=== PATIENT | female | born 1965 | race American Indian/Alaskan Native ===

== ENCOUNTER 2018-12-18 12:58 | Emergency (ER) | payer MEDICAID ==
[2018-12-18] MEDS ORDERED: XYLOCAINE TOPICAL 4% TP ONE (13:28)
[2018-12-18] MEDS ORDERED: MAGNESIUM SULFATE 2GM/50ML 2 GM/50 ML BAG IV ONE (13:28)
[2018-12-18] MEDS ORDERED: REGLAN IV ONE (13:28)
[2018-12-18] MEDS ORDERED: BENADRYL IV ONE (13:28)
[2018-12-18] MEDS ORDERED: SOLU-Medrol IV ONE (13:28)
--- NOTE | 2018-12-18 13:30 | Emergency Department Report ---
ED General Adult HPI - General Chief complaint: Headache Stated complaint: HEADACHE Time Seen by Provider: 12/18/18 13:14 Source: patient, EMS (ems notes not available at time of chart dictation), RN notes reviewed, old records reviewed Mode of arrival: Stretcher Limitations: Other (patient is somewhat of a poor historian) - History of Present Illness Initial comments: This is a 53-year-old female. The patient is not known to this provider previously. History is obtained by reviewing the patient's old medical records, from her previous hospitalization, and also from the patient. The patient has a past medical history of seizure, confirmed on EEG, with focal epileptiform disorder, currently on Tegretol, Keppra, Neurontin. Also has a history of homelessness, chronic headache, history of left craniotomy and tumor resection. Patient reports that her craniotomy was performed 6-7 months ago, in [facility]. Patient was seen at [facility], on 08/24/2018, and referred to an outpatient primary care doctor, and had her outpatient prescription medications refilled. Her medications include Norvasc, 10 mg daily, aspirin, 81 mg daily, Fioricet, one tablet daily, Tegretol, 200 mg twice daily, carvedilol, 6.25 mg twice daily, gabapentin, 300 mg, every 8 hours, Keppra, 750 mg, twice daily, was inappropriate, 10 mg daily, Zoloft, 50 mg daily, Topamax, 25 mg daily. Patient presents to the ER with a complaint of headache. The headache is left- sided. The headache is not sudden or thunderclap in nature. The headache did not reach maximal intensity within an hour. The headache does not radiate anywhere. She reports chronic daily headaches. There is no loss of vision, there is no neck pain, there are no fevers, and there is no vomiting. She has not indicated with her or not she has tried [id number] or oral analgesics for this headache. She reports that she has follow-up with a neurology specialist beginning of December. She denies abdominal pain, urinary symptoms, focal extremity weakness, numbness. She makes no complaint of ataxia, blurry vision, or slurred speech. -: Gradual Location: head Radiation: non-radiation Quality: aching Consistency: constant, intermittent Improves with: none Worsens with: none Associated Symptoms: headaches, malaise, weakness. denies: confusion, chest pain, cough, diaphoresis, fever/chills, loss of appetite, nausea/vomiting, rash, seizure, shortness of breath, syncope - Related Data Allergies Allergy/AdvReac Type Severity Reaction Status Date / Time sumatriptan [From Imitrex] AdvReac Anaphylaxis Verified 12/18/18 13:36 ED Review of Systems ROS: Stated complaint: HEADACHE Other details as noted in HPI Constitutional: malaise. denies: fever Eyes: denies: eye discharge, vision change ENT: denies: epistaxis Respiratory: denies: cough Cardiovascular: denies: chest pain Gastrointestinal: denies: vomiting Genitourinary: denies: dysuria Musculoskeletal: denies: arthralgia Skin: denies: lesions Neurological: headache Psychiatric: anxiety ED Past Medical Hx - Past Medical History Previous Medical History?: Yes Hx Hypertension: Yes Hx Seizures: Yes Additional medical history: Encephalopathy R/T seizures. - Surgical History Past Surgical History?: Yes Additional Surgical History: Brain Tumor surgery - Social History Smoking Status: Never Smoker Substance Use Type: None ED Physical Exam - General Limitations: No Limitations General appearance: alert, in no apparent distress - Head Head exam: Present: atraumatic, normocephalic - Eye Eye exam: Present: normal appearance, PERRL, EOMI, other (visual acuity intact to finger counting, color perception, reading at a close distance). Absent: nystagmus - ENT ENT exam: Present: normal exam, normal orophraynx, mucous membranes moist, normal external ear exam, other (there is no temporal tenderness.) - Neck Neck exam: Present: normal inspection, full ROM. Absent: tenderness, meningismus - Respiratory Respiratory exam: Present: normal lung sounds bilaterally. Absent: respiratory distress - Cardiovascular Cardiovascular Exam: Present: regular rate, normal rhythm, normal heart sounds. Absent: bradycardia, tachycardia, irregular rhythm, systolic murmur, diastolic murmur, rubs, gallop - GI/Abdominal GI/Abdominal exam: Present: soft. Absent: distended, tenderness, guarding, rebound, rigid, pulsatile mass - Extremities Exam Extremities exam: Present: normal inspection, full ROM, other (2+ pulses noted in the bilateral upper, lower extremities. Compartments soft. No long bony tenderness. The pelvis is stable.). Absent: pedal edema, joint swelling, calf tenderness - Back Exam Back exam: Present: normal inspection, full ROM. Absent: tenderness, CVA tenderness (R), paraspinal tenderness, vertebral tenderness - Neurological Exam Neurological exam: Present: alert, oriented X3, CN II-XII intact, other (Extraocular movements intact. Tongue midline. No facial droop. Facial sensation intact to light touch in the V1, V2, V3 distribution bilaterally. 5 and 5 strength in 4 extremities.. Sensation is intact to light touch in 4 extremities.). Absent: motor sensory deficit - Psychiatric Psychiatric exam: Present: anxious - Skin Skin exam: Present: warm, dry, intact, normal color. Absent: rash ED Course Vital Signs 12/18/18 12/18/18 12/18/18 13:33 14:22 14:30 Temperature 98.6 F Pulse Rate 68 65 Respiratory 16 15 Rate Blood Pressure 155/83 155/83 O2 Sat by Pulse 99 98 98 Oximetry 12/18/18 14:46 Temperature Pulse Rate 67 Respiratory 17 Rate Blood Pressure 160/91 O2 Sat by Pulse 96 Oximetry - Reevaluation(s) Reevaluation #1: 12/18/18 14:21 Differential diagnosis, including not limited to: Migraine headache, tension headache, cluster headache, cranial mass lesion, intracranial hemorrhage Assessment and plan: 53-year-old female who had an extensive evaluation at [facility], where she was reportedly admitted for persistent seizures, a fascia, altered mental status, had extensive workup, including consultation with neurosurgery and neurology, EEG, and MRI. Patient has all of her prescriptions with her. sHe is afebrile, and has an unremarkable and nonfocal motor and sensory examination. She has a documented history of chronic headaches. We will treat her headache supportively and symptomatically, obtain noncontrast CT scan of the brain. The patient indicates that she has follow-up with the neurology specialist beginning of December. Reevaluation #2: 12/18/18 14:39 Vital signs unremarkable. Patient is resting comfortably. Noncontrast CT scan of the brain is negative for acute disease. Chronic fin dings noted. Reevaluation #3: 12/18/18 14:57 Patient feels improved. Patient able to walk with a steady gait. Patient will be discharged with instructions to continue current outpatient medications, and to follow-up with an outpatient primary care doctor, and/or neurology specialist. ED Medical Decision Making - Lab Data Result diagrams: 12/18/18 13:35 Vital Signs 12/18/18 14:22 Temperature 98.6 F Lab Results 12/18/18 Range/Units 13:35 Sodium 141 (137-145) mmol/L Potassium 4.3 (3.6-5.0) mmol/L Chloride 101.6 (98-107) mmol/L Carbon Dioxide 30 (22-30) mmol/L Anion Gap 14 mmol/L BUN 14 (7-17) mg/dL Creatinine 0.6 L (0.7-1.2) mg/dL Estimated GFR > 60 ml/min BUN/Creatinine Ratio 23 % Glucose 96 (65-100) mg/dL Calcium 8.8 (8.4-10.2) mg/dL Critical care attestation.: If time is entered above; I have spent that time in minutes in the direct care of this critically ill patient, excluding procedure time. ED Disposition Clinical Impression: Headache Disposition: DC-01 TO HOME OR SELFCARE Is pt being admited?: No Does the pt Need Aspirin: No Condition: Stable Additional Instructions: Continue current outpatient medications. Follow-up with your primary care doctor or neurology specialist within the next 2-3 weeks. Please return to the ER right away with new, worsening, different symptoms. Referrals: JEN SANTACRUZ MD [Referring] - 3-5 Days SREEDHAR DE LEÓN MD [Staff Physician] - 3-5 Days JESUS ANDRE MD [Staff Physician] - 3-5 Days
[2018-12-18 14:28] LABS: BUN/Creatinine Ratio 23; Blood Urea Nitrogen 14 mg/dL (7-17); Calcium 8.8 mg/dL (8.4-10.2); Hemolysis Index 6
--- NOTE | 2018-12-18 14:28 | Cat Scan Report ---
FINAL REPORT EXAM: CT HEAD/BRAIN WO CON HISTORY: headache, history of craniotomy TECHNIQUE: CT of the head was performed without intravenous contrast. PRIORS: None. FINDINGS: The ventricles are normal in shape and position. There is mild ex vacuo dilation of the left lateral ventricle likely related to the old infarcts. No evidence of acute hydrocephalus. Confluent areas of low-attenuation are seen in the periventricular and subcortical white matter. No intracranial hemorrh age, mass, mass effect, midline shift or evidence of acute ischemic infarct. The basilar cisterns are patent. There is encephalomalacia in the left frontal and temporal lobes likely representing old inf arct. Encephalomalacia is seen in the left occipital region. The paranasal sinuses are clear. The extracranial soft tissues demonstrate no abnormality. Probable o ld left medial orbital wall deformity is noted. The orbits are intact. The mastoid air cells are courtney r. IMPRESSION: 1. No definite acute intracranial abnormality. 2. 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 3. White matter changes are nonspecific in a patient this age although may be related to chronic micr ovascular ischemic disease versus a demyelinating or inflammatory process.
[2018-12-18 14:48] VITALS: BP 160/91
== END 2018-12-18 16:00 | disposition home or self-care (01) ==
LOC: ED 12:58
DX: R51 Headache (principal); I10 Essential (primary) hypertension; Z88.8 Allergy status to other drugs, medicaments and biological substances; Z59.0 Homelessness; Z79.82 Long term (current) use of aspirin
CPT/HCPCS: 36415; 70450; 80048; 82550; 96365; 96375; 99285; J1200; J2765; J2930; J3475

== ENCOUNTER 2020-09-06 20:51 | Emergency (ER) | payer MEDICAID ==
[2020-09-07] MEDS ORDERED: oxyCODONE /ACETAMINOPHEN 5-325MG TAB PO ONE (02:47)
--- NOTE | 2020-09-07 02:49 | Emergency Department Report ---
ED General Adult HPI - General Chief complaint: Abdominal Pain Stated complaint: ABDOMINAL PAIN PUI?: No Time Seen by Provider: 09/07/20 02:30 Source: patient Mode of arrival: Stretcher Limitations: No Limitations - History of Present Illness Initial comments: Patient is a 55-year-old female that presents emergency room with complaints of not able to fruit picker her pain medication from a pharmacy and abdominal pain. Patient states she had surgery here and was discharged from the hospital yesterday afternoon. Patient states that she went to the pharmacy and they said the did not have that dose of pain medication. Patient asked the pharmacist what to do and the pharmacist said to go back to the emergency room. The patient then returned to the emergency room for management of her pain. Patient states the pain is a 10 out of 10. Patient states she has staple in her abdomen from the surgery. Patient denies fever chills. Patient states she is having abdominal pain because she has not had any pain medication. Patient denies discharge from the abdominal wound. Patient denies chest pain. Patient denies shortness of breath. Patient denies any other physical complaints. Patient was given a prescription for Percocet 5 mg however the pharmacy does not have the dose. Patient has not any pain medication since she was discharged from the hospital. Patient denies recent travel. Patient denies recent international travel. Patient denies exposure to the novel coronavirus. Patient denies sick contacts. Patient denies fever and chills. Patient denies cough. Patient denies diarrhea. Patient denies coming in contact with anybody with symptoms of the novel coronavirus. -: Sudden Location: abdomen Radiation: non-radiation Severity scale (0 -10): 10 Quality: stabbing Consistency: constant Improves with: medication, rest Worsens with: movement Associated Symptoms: denies other symptoms. denies: confusion, chest pain, cough, diaphoresis, fever/chills, headaches, loss of appetite, malaise, nausea/vomiting, rash, seizure, shortness of breath, syncope, weakness Treatments Prior to Arrival: none - Related Data Previous Rx's Medication Instructions Recorded Last Taken Type Sulfacetamide Sod 10% (Nf) [Bleph 2 drops OP Q3H #1 bottle 03/30/19 Unknown Rx 10 (Nf)] Lisinopril [Zestril TAB] 30 mg PO QDAY #30 tab 10/16/20 Unknown Rx labetaloL [Labetalol 200mg TAB] 200 mg PO BID #60 tablet 09/06/20 Unknown Rx oxyCODONE /ACETAMINOPHEN [Percocet 1 tab PO Q4HR #10 tab 09/06/20 Unknown Rx 5/325] Allergies Allergy/AdvReac Type Severity Reaction Status Date / Time sumatriptan [From Imitrex] AdvReac Anaphylaxis Verified 12/18/18 13:36 ED Review of Systems ROS: Stated complaint: ABDOMINAL PAIN Other details as noted in HPI Constitutional: denies: chills, fever Eyes: denies: eye pain, eye discharge, vision change ENT: denies: ear pain, throat pain Respiratory: denies: cough, shortness of breath, wheezing Cardiovascular: denies: chest pain, palpitations Endocrine: no symptoms reported Gastrointestinal: abdominal pain. denies: nausea, diarrhea Genitourinary: denies: urgency, dysuria, discharge Musculoskeletal: denies: back pain, joint swelling, arthralgia Skin: denies: rash, lesions Neurological: denies: headache, weakness, paresthesias Psychiatric: denies: anxiety, depression Hematological/Lymphatic: denies: easy bleeding, easy bruising ED Past Medical Hx - Past Medical History Previous Medical History?: Yes Hx Hypertension: Yes Hx Heart Attack/AMI: No Hx Congestive Heart Failure: No Hx Diabetes: No Hx Liver Disease: No Hx Renal Disease: No Hx Sickle Cell Disease: No Hx Seizures: Yes (Seizure last on 08/30/2020. Last Keppa dose 08/30/2020) Hx Asthma: No Hx COPD: No Additional medical history: Encephalopathy R/T seizures. - Surgical History Past Surgical History?: Yes Hx Pacemaker: No Hx Internal Defibrillator: No Additional Surgical History: Brain Tumor surgery, Abdominal Surgery - Family History Family history: no significant - Social History Smoking Status: Never Smoker Substance Use Type: None - Medications Home Medications: Home Medications Medication Instructions Recorded Confirmed Last Taken Type Sulfacetamide Sod 10% (Nf) [Bleph 2 drops OP Q3H #1 bottle 03/30/19 Unknown Rx 10 (Nf)] Lisinopril [Zestril TAB] 30 mg PO QDAY #30 tab 09/06/20 Unknown Rx labetaloL [Labetalol 200mg TAB] 200 mg PO BID #60 tablet 09/06/20 Unknown Rx oxyCODONE /ACETAMINOPHEN [Percocet 1 tab PO Q4HR #10 tab 09/06/20 Unknown Rx 5/325] ED Physical Exam - General Limitations: No Limitations General appearance: alert, in no apparent distress - Head Head exam: Present: atraumatic, normocephalic - Eye Eye exam: Present: normal appearance - ENT ENT exam: Present: mucous membranes moist - Neck Neck exam: Present: normal inspection - Respiratory Respiratory exam: Present: normal lung sounds bilaterally. Absent: respiratory distress - Cardiovascular Cardiovascular Exam: Present: regular rate, normal rhythm. Absent: systolic murmur, diastolic murmur, rubs, gallop - GI/Abdominal GI/Abdominal exam: Present: soft, normal bowel sounds, other (Midline surgical site with kiersten noted. Surgical site appears to be healing well. No signs of infection.) - Extremities Exam Extremities exam: Present: normal inspection - Back Exam Back exam: Present: normal inspection - Neurological Exam Neurological exam: Present: alert, oriented X3 - Psychiatric Psychiatric exam: Present: normal affect, normal mood - Skin Skin exam: Present: warm, dry, intact, normal color. Absent: rash ED Course Vital Signs 09/06/20 09/06/20 09/07/20 21:56 22:05 03:05 Temperature 98.2 F 97.6 F Pulse Rate 104 H 98 H Respiratory 18 20 18 Rate Blood Pressure 137/76 Blood Pressure 142/89 [Left] O2 Sat by Pulse 97 97 Oximetry - Reevaluation(s) Reevaluation #1: Patient will be given a dose of pain medications. Patient will be given 10 mg of Percocet since her pain has been untreated for 70 hours. Patient agrees with plan of care. I discussed all results and clinical findings with patient. I discussed plan of care with patient. Patient agrees with plan of care. Patient is stable for discharge. Patient will be discharged home. Patient given discharge instructions. Patient voiced understanding of discharge instructions. 09/07/20 02:48 ED Medical Decision Making - Medical Decision Making Patient is a 55-year-old female that presents emergency room with complaints of not able to obtain her pain medication after being discharged from the hospital earlier yesterday. Patient states she was discharged with oxycodone 5 mg but the pharmacy was unable to fill it because it did not have that dose. Patient given given 10 mg Percocet in the ER since her pain has been uncontrolled and untreated for so many hours. Patient is not require any further emergency medical services. Patient stable for discharge. Patient instructed to follow- up previous discharge instructions. Patient given discharge instructions. Patient discharged home. - Differential Diagnosis Uncontrolled pain. Abdominal pain, medication refill, Critical care attestation.: If time is entered above; I have spent that time in minutes in the direct care of this critically ill patient, excluding procedure time. ED Disposition Clinical Impression: Medication refill, Uncontrolled pain Abdominal pain Qualifiers: Abdominal location: unspecified location Qualified Code(s): R10.9 - Unspecified abdominal pain Disposition: TO HOME OR SELFCARE Is pt being admited?: No Does the pt Need Aspirin: No Condition: Stable Instructions: Abdominal Pain (ED) Additional Instructions: Patient to follow previous discharge instructions from her inpatient discharge. Patient to follow-up with primary care in 2 to 3 days. Patient to follow-up with surgeon in 2 to 3 days. Patient to rest. Patient to increase water. Patient to avoid strenuous exercise or heavy lifting until cleared by surgeon and primary care. Patient to take Tylenol or ibuprofen as needed for pain. Patient to take meds as directed. Patient to return to the ER if condition worsens, changes or new symptoms arise. Referrals: PRIMARY CARE, [Primary Care Provider] - 2-3 Days Time of Disposition: 02:50
[2020-09-07 03:12] VITALS: BP 142/89
== END 2020-09-07 03:20 | disposition home or self-care (01) ==
LOC: ED 20:51
DX: R10.9 Unspecified abdominal pain (principal); I10 Essential (primary) hypertension; Z98.890 Other specified postprocedural states; Z79.899 Other long term (current) drug therapy; Z88.2 Allergy status to sulfonamides
CPT/HCPCS: 99283

== ENCOUNTER 2020-09-09 22:03 | Inpatient (IN) | payer MEDICAID ==
[2020-09-10 00:56] LABS: Basophils % (Auto) 0.4 % (0.0-1.8); Eosinophils % (Auto) 0.1 % (0.0-4.3); Hematocrit 34.5 % (30.3-42.9); Hemoglobin 11.4 gm/dl (10.1-14.3); Lymphocytes # (Auto) 0.9 K/mm3 (1.2-5.4); Lymphocytes % (Auto) 11.7 % (13.4-35.0); Mean Corpuscular HGB Conc 33 % (30-34); Mean Corpuscular Volume 89 fl (79-97); Monocytes # (Auto) 0.4 K/mm3 (0.0-0.8); Monocytes % (Auto) 5.5 % (0.0-7.3); Platelet Count 363 K/mm3 (140-440); Red Blood Count 3.89 M/mm3 (3.65-5.03); Red Cell Distribution Width 14.8 % (13.2-15.2)
[2020-09-10 01:11] LABS: Alanine Aminotransferase 65 units/L (7-56); Albumin 3.9 g/dL (3.9-5); Blood Urea Nitrogen 12 mg/dL (7-17); Calcium 9.2 mg/dL (8.4-10.2); Hemolysis Index 1
[2020-09-10 01:17] LABS: BUN/Creatinine Ratio 24
[2020-09-10] MEDS ORDERED: ONDANSETRON 4 MG/2 ML INJ IV ONE (02:44)
[2020-09-10] MEDS ORDERED: MORPHINE 4 MG/1 ML INJ IV ONE (02:44)
[2020-09-10] MEDS ORDERED: SODIUM CHLORIDE 0.9% 1000 ML 1,000 ML IV ONE (02:44)
--- NOTE | 2020-09-10 02:56 | Emergency Department Report ---
HPI - General Chief Complaint: Abdominal Pain Time Seen by Provider: 09/10/20 02:37 - HPI HPI: This is a 55-year-old female presents to the emergency department with a complaint of abdominal pain with radiation to the back that has been going on for the past 2 to 3 days and getting progressively worse. She admits to some nausea but denies any vomiting. The patient was just admitted to the hospital for, and had surgery for, a small bowel obstruction. At the time the patient was also found to have evidence of choledocholithiasis and was seen by gas troenterology but an ERCP was not performed and the patient was supposed to follow-up at the GI clinic in about 1 to 2 weeks. The patient says that she ran out of her pain medication. She has a past medical history of hypertension, seizures, previous brain tumor surgery. She denies any fever, dysuria, vaginal bleeding or discharge. ED Past Medical Hx - Past Medical History Previous Medical History?: Yes Hx Hypertension: Yes Hx Heart Attack/AMI: No Hx Congestive Heart Failure: No Hx Diabetes: No Hx Liver Disease: No Hx Renal Disease: No Hx Sickle Cell Disease: No Hx Seizures: Yes (Seizure last on 08/30/2020. Last Keppa dose 08/30/2020) Hx Asthma: No Hx COPD: No Additional medical history: Encephalopathy R/T seizures. - Surgical History Past Surgical History?: Yes Hx Pacemaker: No Hx Internal Defibrillator: No Additional Surgical History: Brain Tumor surgery, Abdominal Surgery - Social History Smoking Status: Never Smoker - Medications Home Medications: Home Medications Medication Instructions Recorded Confirmed Last Taken Type Sulfacetamide Sod 10% (Nf) [Bleph 2 drops OP Q3H #1 bottle 03/30/19 Unknown Rx 10 (Nf)] Lisinopril [Zestril TAB] 30 mg PO QDAY #30 tab 09/06/20 Unknown Rx labetaloL [Labetalol 200mg TAB] 200 mg PO BID #60 tablet 09/06/20 Unknown Rx oxyCODONE /ACETAMINOPHEN [Percocet 1 tab PO Q4HR #10 tab 09/06/20 Unknown Rx 5/325] ED Review of Systems ROS: Stated complaint: ABDOMINAL PAIN Other details as noted in HPI Comment: All other systems reviewed and negative Constitutional: denies: chills, fever Eyes: denies: eye pain, vision change ENT: denies: ear pain, throat pain Respiratory: denies: cough, shortness of breath Cardiovascular: denies: chest pain, palpitations Gastrointestinal: abdominal pain, nausea. denies: diarrhea Genitourinary: denies: dysuria, discharge Musculoskeletal: back pain. denies: arthralgia Skin: denies: rash, lesions Neurological: denies: headache, weakness Physical Exam - Physical Exam Vital Signs: Vital Signs 09/10/20 00:16 Temperature 98.1 F Pulse Rate 92 H Respiratory 20 Rate Blood Pressure 164/93 [Left] O2 Sat by Pulse 100 Oximetry Physical Exam: GENERAL: The patient is well-developed well-nourished. HENT: Normocephalic. Atraumatic. Patient has moist mucous membranes. EYES: Extraocular motions are intact. NECK: Supple. Trachea is midline. CHEST/LUNGS: Clear to auscultation. There is no respiratory distress noted. HEART/CARDIOVASCULAR: Regular. There is no tachycardia. There is no murmur. ABDOMEN: Abdomen is soft. Right upper quadrant abdominal tenderness. There is some mild guarding. Patient has normal bowel sounds. SKIN: Skin is warm and dry. Mid to lower abdominal kiersten in place. No eryth abigail, discharge or dehiscence. NEURO: The patient is awake, alert, and oriented. The patient is cooperative. The patient has no focal neurologic deficits. Normal speech. MUSCULOSKELETAL: There is no tenderness or deformity. There is no limitation range of motion. There is no evidence of acute injury. BACK: There is some reproducible right-sided mid to lower back pain to palpation. ED Course Vital Signs 09/10/20 00:16 Temperature 98.1 F Pulse Rate 92 H Respiratory 20 Rate Blood Pressure 164/93 [Left] O2 Sat by Pulse 100 Oximetry - Reevaluation(s) Reevaluation #1: 09/10/20 04:41 Lab Results 09/10/20 09/10/20 Range/Units 00:30 00:30 WBC 7.3 (4.5-11.0) K/mm3 RBC 3.89 (3.65-5.03) M/mm3 Hgb 11.4 (10.1-14.3) gm/dl Hct 34.5 (30.3-42.9) % MCV 89 (79-97) fl MCH 29 (28-32) pg MCHC 33 (30-34) % RDW 14.8 (13.2-15.2) % Plt Count 363 (140-440) K/mm3 Lymph % (Auto) 11.7 L (13.4-35.0) % Rock % (Auto) 5.5 (0.0-7.3) % Eos % (Auto) 0.1 (0.0-4.3) % Baso % (Auto) 0.4 (0.0-1.8) % Lymph # (Auto) 0.9 L (1.2-5.4) K/mm3 Rock # (Auto) 0.4 (0.0-0.8) K/mm3 Eos # (Auto) 0.0 (0.0-0.4) K/mm3 Baso # (Auto) 0.0 (0.0-0.1) K/mm3 Seg Neutrophils % 82.3 H (40.0-70.0) % Seg Neutrophils # 6.0 (1.8-7.7) K/mm3 Sodium 138 (137-145) mmol/L Potassium 2.9 L* (3.6-5.0) mmol/L Chloride 98.6 (98-107) mmol/L Carbon Dioxide 24 (22-30) mmol/L Anion Gap 18 mmol/L BUN 12 (7-17) mg/dL Creatinine 0.5 L (0.6-1.2) mg/dL Estimated GFR > 60 ml/min BUN/Creatinine Ratio 24 % Glucose 146 H (65-100) mg/dL Calcium 9.2 (8.4-10.2) mg/dL Total Bilirubin 3.20 H (0.1-1.2) mg/dL AST 87 H (5-40) units/L ALT 65 H (7-56) units/L Alkaline Phosphatase 502 H (35-129) units/L Total Protein 7.7 (6.3-8.2) g/dL Albumin 3.9 (3.9-5) g/dL Albumin/Globulin Ratio 1.0 % Lipase 184 H (13-60) units/L - Consultations Consultation #1: 09/10/20 04:22 I spoke to the general surgeon on-call, Dr. Rivas, who also happens to be the surgeon who did the patient's lysis of adhesions 9 days ago when she was here for a small bowel obstruction. We discussed the patient's labs and ultrasound results. He agrees with the plan for contacting gastroenterology for the choledocholithiasis. He says that he is available for consult if requested, but there is nothing to do from a surgical standpoint at this time. I spoke to the snack stewardess on-call, Dr. Steven, regarding the findings of choledocholithiasis with elevated LFTs, bilirubin and lipase. She has recommended the patient be admitted to the hospital, remain nothing by mouth, and they will see the patient as a consult this morning. ED Medical Decision Making - Lab Data Result diagrams: 09/10/20 00:30 09/10/20 00:30 - Radiology Data Radiology results: report reviewed ULTRASOUND ABDOMEN, LIMITED (RIGHT UPPER QUADRANT) INDICATION: RUQ pain, hx of choledocholithiasis, elevated Bili. COMPARISON: CT scan dated 08/30/2020 FINDINGS: Pancreas: Visualized portion shows no significant abnormality. Liver: Normal. Gallbladder: Cholelithiasis Bile ducts: There is choledocholithiasis. Common Bile Duct measures 8 mm. Free fluid: None. Additional Findings: None. IMPRESSION: 1. Cholelithiasis with choledocholithiasis. Common bile duct measures 8 mm. - Medical Decision Making This patient presents to the emergency department with a complaint of abdominal pain with radiation towards the back. She is about 9 days status post lysis of adhesions for an SBO. At that time she also had choledocholithiasis, but normal labs, so gastroenterology wanted outpatient follow-up. Today, the patient has elevated bilirubin, elevated LFTs and elevated lipase. No fever and no leukocytosis. The incision site looks good without any erythema, discharge, or signs of dehiscence. The patient was given a dose of IV analgesia and some IV fluid resuscitation. She had an ultrasound that came back showing cholelithiasis and choledoc holithiasis. Gastroenterology was contacted and consulted. The patient will be admitted to the hospital for further evaluation and treatment and was accepted for admission by the hospitalist, Dr. Dobbins. Critical Care Time: No Critical care attestation.: If time is entered above; I have spent that time in minutes in the direct care of this critically ill patient, excluding procedure time. ED Disposition Clinical Impression: Choledocholithiasis, Elevated bilirubin, Elevated LFTs, Elevated lipase Abdominal pain Qualifiers: Abdominal location: unspecified location Qualified Code(s): R10.9 - Unspecified abdominal pain Cholelithiasis Qualifiers: Cholelithiasis location: gallbladder and bile duct Cholecystitis presence: without cholecystitis Biliary obstruction: with biliary obstruction Qualified Code(s): K80.71 - Calculus of gallbladder and bile duct without cholecystitis with obstruction Disposition: 09 OP ADMIT IP TO THIS HOSP Is pt being admited?: Yes Condition: Serious Time of Disposition: 04:28
[2020-09-10] MEDS ORDERED: POTASSIUM CHLORIDE ER 20 MEQ TAB PO ONE (04:03)
--- NOTE | 2020-09-10 04:03 | Ultrasound Report ---
ULTRASOUND ABDOMEN, LIMITED (RIGHT UPPER QUADRANT) INDICATION: RUQ pain, hx of choledocholithiasis, elevated Bili. COMPARISON: CT scan dated 08/30/2020 FINDINGS: Pancreas: Visualized portion shows no significant abnormality. Liver: Normal. Gallbladder: Cholelithiasis Bile ducts: There is choledocholithiasis. Common Bile Duct measures 8 mm. Free fluid: None. Additional Findings: None. IMPRESSION: 1. Cholelithiasis with choledocholithiasis. Common bile duct measures 8 mm. Signer Name: Eduardo Boykin MD Signed: 09/10/2020 3:59 AM Workstation Name: [id number]
[2020-09-10] MEDS: POTASSIUM CHLORIDE 10 MEQ 10 MEQ/100 ML BAG IV SCH ×2 (04:41→11:45)
[2020-09-10] MEDS ORDERED: ONDANSETRON 4 MG/2 ML INJ IV PRN (06:18)
[2020-09-10] MEDS ORDERED: ACETAMINOPHEN 650 MG RECT SUPP PR PRN (06:20)
--- NOTE | 2020-09-10 06:27 | History and Physical Report ---
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 Patient came back with abdominal pain that became progressively worse going on for about 3 to 4 days wi th nausea and vomiting, there was no history of fever or chills, there was no history of diarrhea or constipation, patient also denies any history of shortness of breath or body aches. Past History Past Medical History: hypertension, seizures, other (SMALL BOWELL OBSTRUCTION) Past Surgical History: bowel surgery Social history: no significant social history Family history: no significant family history Medications and Allergies Allergies Allergy/AdvReac Type Severity Reaction Status Date / Time sumatriptan [From Imitrex] AdvReac Anaphylaxis Verified 12/18/18 13:36 Home Medications Medication Instructions Recorded Confirmed Last Taken Type Sulfacetamide Sod 10% (Nf) [Bleph 2 drops OP Q3H #1 bottle 03/30/19 Unknown Rx 10 (Nf)] Lisinopril [Zestril TAB] 30 mg PO QDAY #30 tab 09/06/20 Unknown Rx labetaloL [Labetalol 200mg TAB] 200 mg PO BID #60 tablet 09/06/20 Unknown Rx oxyCODONE /ACETAMINOPHEN [Percocet 1 tab PO Q4HR #10 tab 09/06/20 Unknown Rx 5/325] Active Meds: Active Medications Acetaminophen (Tylenol) 650 mg [place] Q4H PRN PRN Reason: Fever >101 Hydromorphone HCl (Dilaudid) 1 mg IV Q4H PRN PRN Reason: Pain , Severe (7-10) Potassium Chloride (Kcl 10meq/100ml) 10 meq in 100 mls @ 100 mls/hr IV Q1H DHARMESH Stop: 09/10/20 06:59 Last Admin: 09/10/20 04:41 Dose: 100 mls/hr Documented by: Sodium Chloride (Nacl 0.9% 1000 Ml) 1,000 mls @ 75 mls/hr IV DIRECT DHARMESH Ondansetron HCl (Zofran) 4 mg IV Q8H PRN PRN Reason: Nausea And Vomiting Review of Systems Constitutional: no weight loss, no weight gain, no fever, no chills, no sweats, no night sweats, no weakness, no malaise, no lethargy Eyes: bilateral: other (NO BILATERAL EYE SYMPTOMS) Ears, nose, mouth and throat: no ear pain, no nose pain, no nasal discharge, no dysphagia, no sore throat Breasts: deferred Cardiovascular: no chest pain, no orthopnea, no palpitations, no rapid/irregular heart beat, no edema, no syncope, no lightheadedness, no paroxysmal nocturnal dyspnea, no claudication, no phlebitis, no high blood pressure, no leg edema Respiratory: no cough, no cough with sputum, no excessive sputum, no hemoptysis, no shortness of breath, no dyspnea on exertion, no congestion, no wheezing, no pleurisy, no pain, no pain on inspiration, no respiratory infections, no home oxygen Gastrointestinal: abdominal pain, nausea, vomiting, no diarrhea, no constipation, no change in bowel habits, no hematemesis, no coffee ground emesis, no melena, no hematochezia, no loss of appetite, no early satiety, no excessive gas, no jaundice, no dyspepsia/bloating Rectal: no pain, no itching Musculoskeletal: no neck stiffness, no neck pain, no shooting arm pain, no low back pain, no shooting leg pain, no leg numbness/tingling, no redness of joints, no myalgias Integumentary: no rash, no pruritis, no redness, no sores, no wounds, no jaundice, no boils, no darkening of skin Neurological: no paralysis, no weakness, no seizures, no syncope, no tremors, no vertigo, no headaches, no convulsions Psychiatric: no anxiety Endocrine: no polyphagia, no excessive thirst, no polydipsia, no polyuria, no nocturia, no excessive sweating, no flushing, no palpatations Hematologic/Lymphatic: no easy bruising, no easy bleeding, no lymphadenopathy Allergic/Immunologic: no urticaria Exam - Constitutional Vitals: Temp Pulse Resp BP Pulse Ox 98 F 97 H 14 123/67 98 09/10/20 02:50 09/10/20 05:15 09/10/20 05:15 09/10/20 04:45 09/10/20 05:15 General appearance: Present: mild distress - EENT Eyes: Present: PERRL, EOM intact. Absent: scleral icterus ENT: hearing intact, clear oral mucosa - Neck Neck: Present: supple, normal ROM - Respiratory Respiratory effort: normal - Cardiovascular Rhythm: regular Heart Sounds: Present: S1 & S2. Absent: gallop, systolic murmur, diastolic murmur - Extremities Extremities: no ischemia, No edema Peripheral Pulses: within normal limits - Abdominal General gastrointestinal: Present: soft, tender, distended, normal bowel sounds, other (SURGICAL GILBERTO IN PLACE IN THE ANTERIOR ABDOMINAL WALL). Absent: non- tender, non-distended, rigid, hepatomegaly, splenomegaly Female genitourinary: Present: deferred - Rectal Rectal Exam: deferred - Integumentary Integumentary: Present: clear, warm, dry. Absent: erythema, jaundice, rash - Musculoskeletal Musculoskeletal: strength equal bilaterally - Psychiatric Psychiatric: appropriate mood/affect - Neurologic Neurologic: CNII-XII intact HEART Score - HEART Score Age: 45-65 Risk factors: 1-2 risk factors Troponin: < normal limit - Critical Actions Critical Actions: 0-3 pts:0.9-1.7%risk of adverse cardiac event.Candidate for discharge Results - Labs CBC & Chem 7: 09/10/20 00:30 09/10/20 00:30 Labs: Laboratory Last Values WBC 7.3 K/mm3 (4.5-11.0) 09/10/20 00:30 RBC 3.89 M/mm3 (3.65-5.03) 09/10/20 00:30 Hgb 11.4 gm/dl (10.1-14.3) 09/10/20 00:30 Hct 34.5 % (30.3-42.9) 09/10/20 00:30 MCV 89 fl (79-97) 09/10/20 00:30 MCH 29 pg (28-32) 09/10/20 00:30 MCHC 33 % (30-34) 09/10/20 00:30 RDW 14.8 % (13.2-15.2) 09/10/20 00:30 Plt Count 363 K/mm3 (140-440) 09/10/20 00:30 Lymph % (Auto) 11.7 % (13.4-35.0) L 09/10/20 00:30 Tripp % (Auto) 5.5 % (0.0-7.3) 09/10/20 00:30 Eos % (Auto) 0.1 % (0.0-4.3) 09/10/20 00:30 Baso % (Auto) 0.4 % (0.0-1.8) 09/10/20 00:30 Lymph # (Auto) 0.9 K/mm3 (1.2-5.4) L 09/10/20 00:30 Tripp # (Auto) 0.4 K/mm3 (0.0-0.8) 09/10/20 00:30 Eos # (Auto) 0.0 K/mm3 (0.0-0.4) 09/10/20 00:30 Baso # (Auto) 0.0 K/mm3 (0.0-0.1) 09/10/20 00:30 Seg Neutrophils % 82.3 % (40.0-70.0) H 09/10/20 00:30 Seg Neutrophils # 6.0 K/mm3 (1.8-7.7) 09/10/20 00:30 Sodium 138 mmol/L (137-145) 09/10/20 00:30 Potassium 2.9 mmol/L (3.6-5.0) L* 09/10/20 00:30 Chloride 98.6 mmol/L (98-107) 09/10/20 00:30 Carbon Dioxide 24 mmol/L (22-30) 09/10/20 00:30 Anion Gap 18 mmol/L 09/10/20 00:30 BUN 12 mg/dL (7-17) 09/10/20 00:30 Creatinine 0.5 mg/dL (0.6-1.2) L 09/10/20 00:30 Estimated GFR > 60 ml/min 09/10/20 00:30 BUN/Creatinine Ratio 24 % 09/10/20 00:30 Glucose 146 mg/dL (65-100) H 09/10/20 00:30 Calcium 9.2 mg/dL (8.4-10.2) 09/10/20 00:30 Total Bilirubin 3.20 mg/dL (0.1-1.2) H 09/10/20 00:30 AST 87 units/L (5-40) H 09/10/20 00:30 ALT 65 units/L (7-56) H 09/10/20 00:30 Alkaline Phosphatase 502 units/L (35-129) H 09/10/20 00:30 Total Protein 7.7 g/dL (6.3-8.2) 09/10/20 00:30 Albumin 3.9 g/dL (3.9-5) 09/10/20 00:30 Albumin/Globulin Ratio 1.0 % 09/10/20 00:30 Lipase 184 units/L (13-60) H 09/10/20 00:30 Momin/IV: IV Catheter Type [Left Hand] INT / Saline Lock Assessment and Plan - Patient Problems (1) Abdominal pain Current Visit: Yes Status: Acute Qualifiers: Abdominal location: unspecified location Qualified Code(s): R10.9 - Unspecified abdominal pain Plan to address problem: 1 I.V DILUDID FOR PAIN 2. I.V ZOFRAN FOR NAUSEA AND VOMITING 3. SURGICAL CONSULT (2) Choledocholithiasis Current Visit: Yes Status: Acute Plan to address problem: 1. G.I CONSULT 2. NPO (3) Hypokalemia Current Visit: No Status: Acute Plan to address problem: POTASSIUM REPLACEMENT
[2020-09-10] MEDS: SODIUM CHLORIDE 0.9% 1000 ML 1,000 ML IV SCH ×2 (06:51→16:52)
--- NOTE | 2020-09-10 08:28 | Gastroenterology Consultation ---
History of Present Illness - Reason for Consult Consult date: 09/10/20 Choledocholithiasis Requesting physician: BRITTANY ROSA - History of Present Illness Pleasant 55-year-old female postop day #9 from ex lap for SBO with lysis of adhesions presents with abdominal pain and elevated liver enzymes and known choledocholithiasis Patient actually has known choledocholithiasis from last visit a little over a week ago, however at that time she was asymptomatic and LFTs were normal therefore due to her acute postop status she was scheduled for outpatient GI follow-up for eventual elective ERCP However, the patient reports that starting yesterday she developed "20 out of 10" abdominal pain in the right abdomen that radiated to her back associated with nausea and vomiting cramping severe constant better with nothing worse with nothing. She therefore came to the emergency room where her liver enzymes were found to be newly elevated She reports this morning that her symptoms are moderately improved she is actually asking for food and reports that the back pain is still present though improved the abdominal pain she reports feels back to the way it felt for her p ostoperative status Obtained/updated/reviewed patient's current medications Past History Past Medical History: hypertension, seizures, other (SMALL BOWELL OBSTRUCTION) Past Surgical History: bowel surgery Social history: no significant social history Family history: no significant family history Medications and Allergies Allergies Allergy/AdvReac Type Severity Reaction Status Date / Time sumatriptan [From Imitrex] AdvReac Anaphylaxis Verified 12/18/18 13:36 Home Medications Medication Instructions Recorded Confirmed Last Taken Type Sulfacetamide Sod 10% (Nf) [Bleph 2 drops OP Q3H #1 bottle 03/30/19 Unknown Rx 10 (Nf)] Lisinopril [Zestril TAB] 30 mg PO QDAY #30 tab 09/06/20 Unknown Rx labetaloL [Labetalol 200mg TAB] 200 mg PO BID #60 tablet 09/06/20 Unknown Rx oxyCODONE /ACETAMINOPHEN [Percocet 1 tab PO Q4HR #10 tab 09/06/20 Unknown Rx 5/325] Active Meds: Active Medications Acetaminophen (Tylenol) 650 mg [place] Q4H PRN PRN Reason: Fever >101 Hydromorphone HCl (Dilaudid) 1 mg IV Q4H PRN PRN Reason: Pain , Severe (7-10) Sodium Chloride (Nacl 0.9% 1000 Ml) 1,000 mls @ 75 mls/hr IV DIRECT DHARMESH Last Admin: 09/10/20 06:51 Dose: 75 mls/hr Documented by: Ondansetron HCl (Zofran) 4 mg IV Q8H PRN PRN Reason: Nausea And Vomiting Review of Systems - Review of Systems All systems: negative (10 Systems reviewed and negative except as mentioned above in the history of present illness) Exam - Constitutional Vital Signs: Temp Pulse Resp BP Pulse Ox 98.4 F 86 18 164/96 99 09/10/20 07:35 09/10/20 07:35 09/10/20 07:35 09/10/20 07:35 09/10/20 07:35 General appearance: no acute distress, other (Thin) - EENT Eyes: EOM intact ENT: hearing intact - Neck Neck: supple - Respiratory Respiratory effort: normal - Cardiovascular Rhythm: regular - Gastrointestinal General gastrointestinal: Present: other (Normal bowel sounds, mildly firm, kiersten in place vertical line down the mid abdomen. She reports significant diffuse tenderness to palpation throughout the entire abdomen even to slight touch) - Integumentary Integumentary: Present: dry - Neurologic Neurological: alert and oriented x3 - Psychiatric Psychiatric: appropriate mood/affect - Labs CBC & Chem 7: 09/10/20 00:30 09/10/20 00:30 Lab Results: Laboratory Results - last 24 hr 09/10/20 09/10/20 00:30 00:30 WBC 7.3 RBC 3.89 Hgb 11.4 Hct 34.5 MCV 89 MCH 29 MCHC 33 RDW 14.8 Plt Count 363 Lymph % (Auto) 11.7 L Moffat % (Auto) 5.5 Eos % (Auto) 0.1 Baso % (Auto) 0.4 Lymph # (Auto) 0.9 L Moffat # (Auto) 0.4 Eos # (Auto) 0.0 Baso # (Auto) 0.0 Seg Neutrophils % 82.3 H Seg Neutrophils # 6.0 Sodium 138 Potassium 2.9 L* Chloride 98.6 Carbon Dioxide 24 Anion Gap 18 BUN 12 Creatinine 0.5 L Estimated GFR > 60 BUN/Creatinine Ratio 24 Glucose 146 H Calcium 9.2 Total Bilirubin 3.20 H AST 87 H ALT 65 H Alkaline Phosphatase 502 H Total Protein 7.7 Albumin 3.9 Albumin/Globulin Ratio 1.0 Lipase 184 H Assessment and Plan Patient symptoms are improving, spoke with advanced endoscopy and given patient is clinically in proving will wait on ERCP for at least another week to allow further healing to decrease the risk of significant perioperative complications from an ERCP. recommend monitor for 24 hours both clinically and following liver enzymes. If she continues to improve we will schedule her for outpatient ERCP in the next 1 to 2 weeks. If however her symptoms worsen again and her liver enzymes worsen, will perform inpatient ERCP I started her on a clear liquid diet for now given this plan - Patient Problems (1) Abdominal pain Current Visit: Yes Status: Acute Qualifiers: Abdominal location: unspecified location Qualified Code(s): R10.9 - Unspecified abdominal pain (2) Choledocholithiasis Current Visit: Yes Status: Acute (3) Cholelithiasis Current Visit: Yes Status: Acute Qualifiers: Cholelithiasis location: gallbladder and bile duct Cholecystitis presence: without cholecystitis Biliary obstruction: with biliary obstruction Qualified Code(s): K80.71 - Calculus of gallbladder and bile duct without cholecystitis with obstruction (4) Elevated LFTs Current Visit: Yes Status: Acute
[2020-09-10] MEDS: HYDROmorphone 1 MG/1 ML INJ IV PRN ×3 (12:15→21:20)
--- NOTE | 2020-09-10 13:12 | Consultation ---
History of Present Illness Consult date: 09/10/20 Reason for consult: abdominal pain - History of present illness History of present illness: 55 year old female previously admitted with abd pain, CT abd pelvis demonstrated SBO, incidentally found choledocholithiasis with normal LFTs at the time. Pt had expl lap with adhesiolysis, (NO BOWEL RESECTION), did well post op. Had GI ev aluation and plan was to have elective ERCP as outpatient, patient was discharged on oral antibiotics I believe. She developed more abd pain and presented to ER with increased LFTs, GI on board. Past History Past Medical History: hypertension, seizures, other (SMALL BOWELL OBSTRUCTION) Past Surgical History: bowel surgery Social history: no significant social history Family history: no significant family history Medications and Allergies Allergies Allergy/AdvReac Type Severity Reaction Status Date / Time sumatriptan [From Imitrex] AdvReac Anaphylaxis Verified 12/18/18 13:36 Home Medications Medication Instructions Recorded Confirmed Last Taken Type Sulfacetamide Sod 10% (Nf) [Bleph 2 drops OP Q3H #1 bottle 03/30/19 Unknown Rx 10 (Nf)] Lisinopril [Zestril TAB] 30 mg PO QDAY #30 tab 09/06/20 Unknown Rx labetaloL [Labetalol 200mg TAB] 200 mg PO BID #60 tablet 09/06/20 Unknown Rx oxyCODONE /ACETAMINOPHEN [Percocet 1 tab PO Q4HR #10 tab 09/06/20 Unknown Rx 5/325] Active Meds: Active Medications Acetaminophen (Tylenol) 650 mg ND Q4H PRN PRN Reason: Fever >101 Hydromorphone HCl (Dilaudid) 1 mg IV Q4H PRN PRN Reason: Pain , Severe (7-10) Last Admin: 09/10/20 12:15 Dose: 1 mg Documented by: Sodium Chloride (Nacl 0.9% 1000 Ml) 1,000 mls @ 75 mls/hr IV DIRECT DHARMESH Last Admin: 09/10/20 06:51 Dose: 75 mls/hr Documented by: Ondansetron HCl (Zofran) 4 mg IV Q8H PRN PRN Reason: Nausea And Vomiting Review of Systems - Constitutional other (abd pain) Exam Vital Signs Temp Pulse Resp BP Pulse Ox 98.1 F 92 H 20 164/93 100 09/10/20 00:16 09/10/20 00:16 09/10/20 00:16 09/10/20 00:16 09/10/20 00:16 Results - Labs 09/10/20 00:30 09/10/20 09:21 Abnormal lab results 09/10/20 09/10/20 Range/Units 00:30 00:30 Lymph % (Auto) 11.7 L (13.4-35.0) % Lymph # (Auto) 0.9 L (1.2-5.4) K/mm3 Seg Neutrophils % 82.3 H (40.0-70.0) % Potassium 2.9 L* (3.6-5.0) mmol/L Creatinine 0.5 L (0.6-1.2) mg/dL Glucose 146 H (65-100) mg/dL Total Bilirubin 3.20 H (0.1-1.2) mg/dL AST 87 H (5-40) units/L ALT 65 H (7-56) units/L Alkaline Phosphatase 502 H (35-129) units/L Lipase 184 H (13-60) units/L Diabetes panel 09/10/20 09/10/20 Range/Units 00:30 09:21 Sodium 138 (137-145) mmol/L Potassium 2.9 L* 4.6 D (3.6-5.0) mmol/L Chloride 98.6 (98-107) mmol/L Carbon Dioxide 24 (22-30) mmol/L BUN 12 (7-17) mg/dL Creatinine 0.5 L (0.6-1.2) mg/dL Glucose 146 H (65-100) mg/dL Calcium 9.2 (8.4-10.2) mg/dL AST 87 H (5-40) units/L ALT 65 H (7-56) units/L Alkaline Phosphatase 502 H (35-129) units/L Total Protein 7.7 (6.3-8.2) g/dL Albumin 3.9 (3.9-5) g/dL Calcium panel 09/10/20 Range/Units 00:30 Calcium 9.2 (8.4-10.2) mg/dL Albumin 3.9 (3.9-5) g/dL Pituitary panel 09/10/20 09/10/20 Range/Units 00:30 09:21 Sodium 138 (137-145) mmol/L Potassium 2.9 L* 4.6 D (3.6-5.0) mmol/L Chloride 98.6 (98-107) mmol/L Carbon Dioxide 24 (22-30) mmol/L BUN 12 (7-17) mg/dL Creatinine 0.5 L (0.6-1.2) mg/dL Glucose 146 H (65-100) mg/dL Calcium 9.2 (8.4-10.2) mg/dL Adrenal panel 09/10/20 09/10/20 Range/Units 00:30 09:21 Sodium 138 (137-145) mmol/L Potassium 2.9 L* 4.6 D (3.6-5.0) mmol/L Chloride 98.6 (98-107) mmol/L Carbon Dioxide 24 (22-30) mmol/L BUN 12 (7-17) mg/dL Creatinine 0.5 L (0.6-1.2) mg/dL Glucose 146 H (65-100) mg/dL Calcium 9.2 (8.4-10.2) mg/dL Total Bilirubin 3.20 H (0.1-1.2) mg/dL AST 87 H (5-40) units/L ALT 65 H (7-56) units/L Alkaline Phosphatase 502 H (35-129) units/L Total Protein 7.7 (6.3-8.2) g/dL Albumin 3.9 (3.9-5) g/dL Assessment and Plan S/p expl lap with adhesiolysis, NO small bowel resection, incidentally found choledocholithiais, previously normal LFTs, now abnormal. GI on board, I am ok with ERCP if indicated from a General Surgical standpoint, pt did not have any bowel resected and there is no anastomosis to worry about. Plan per GI.
--- NOTE | 2020-09-10 14:32 | Event Note ---
Date: 09/10/20 Patient was seen and evaluated this morning. Patient was admitted earlier this morning. Patient was seen by GI and general surgery. Pain is controlled.
[2020-09-11] MEDS: HYDROmorphone 1 MG/1 ML INJ IV PRN ×6 (01:20→21:29)
[2020-09-11] MEDS: SODIUM CHLORIDE 0.9% 1000 ML 1,000 ML IV SCH (05:41)
[2020-09-11 06:11] LABS: Albumin 3.2 g/dL (3.9-5); Bilirubin,Direct 1.1 mg/dL (0-0.2)
[2020-09-11 07:07] LABS: Bilirubin,Urine NEG (Negative); Blood,Urine SM (Negative); Color,Urine Yellow (Yellow); Mucus,Urine FEW /HPF; Protein,Urine <15 mg/dL mg/dL (Negative); Urobilinogen,Urine < 2.0 mg/dL (<2.0); WBC,Urine < 1.0 /HPF (0.0-6.0)
--- NOTE | 2020-09-11 08:23 | Progress Note ---
Assessment and Plan Assessment and plan: (1) Abdominal pain Current Visit: Yes Status: Acute Qualifiers: Abdominal location: unspecified location Qualified Code(s): R10.9 - Unspecified abdominal pain Plan to address problem: -Pain is controlled with pain medication. Patient ran out of her pain medication. Patient scheduled to see her primary care physician for pain medicine at discharge. -Patient was seen by general surgery and he is okay to do ERCP if needed (2) Choledocholithiasis Current Visit: Yes Status: Acute Plan to address problem: -GI saw the patient and will repeat LFTs and will decide the need for ERCP -Bilirubin trended down from 3-1.8, alk phos decreased from 520- 420 -Surgery cleared for ERCP (3) Hypokalemia Current Visit: No Status: Acute Plan to address problem: -Repleted Disposition; per GI and surgery recommendations. History Interval history: Patient was seen and evaluated this morning Patient had abdominal pain this morning and required Dilaudid Patient has epigastric burning and was given Pepcid Hospitalist Physical - Physical exam Narrative exam: Not in cardiopulmonary distress. The patient appeared well nourished and normally developed. Vital signs as documented. Head exam is unremarkable. No scleral icterus . Neck is without jugular venous distension, thyromegaly, or carotid bruits. Lungs are clear to auscultation. Cardiac exam reveals regular rate and Rhythm. Abdominal exam clean surgical wound on the mid abdomen Extremities are nonedematous and both femoral and pedal pulses are normal. BULK FOLDER: Alert and oriented 3. No focal weakness. - Constitutional Vitals: Temp Pulse Resp BP Pulse Ox 98.7 F 81 18 167/102 99 09/11/20 07:12 09/11/20 07:12 09/11/20 07:12 09/11/20 07:12 09/11/20 07:12 General appearance: Present: mild distress HEART Score - HEART Score Age: 45-65 Risk factors: 1-2 risk factors Troponin: < normal limit - Critical Actions Critical Actions: 0-3 pts:0.9-1.7%risk of adverse cardiac event.Candidate for discharge Results - Labs CBC & Chem 7: 09/10/20 00:30 09/10/20 09:21 Labs: Laboratory Last Values WBC 7.3 K/mm3 (4.5-11.0) 09/10/20 00:30 RBC 3.89 M/mm3 (3.65-5.03) 09/10/20 00:30 Hgb 11.4 gm/dl (10.1-14.3) 09/10/20 00:30 Hct 34.5 % (30.3-42.9) 09/10/20 00:30 MCV 89 fl (79-97) 09/10/20 00:30 MCH 29 pg (28-32) 09/10/20 00:30 MCHC 33 % (30-34) 09/10/20 00:30 RDW 14.8 % (13.2-15.2) 09/10/20 00:30 Plt Count 363 K/mm3 (140-440) 09/10/20 00:30 Lymph % (Auto) 11.7 % (13.4-35.0) L 09/10/20 00:30 [place] % (Auto) 5.5 % (0.0-7.3) 09/10/20 00:30 Eos % (Auto) 0.1 % (0.0-4.3) 09/10/20 00:30 Baso % (Auto) 0.4 % (0.0-1.8) 09/10/20 00:30 Lymph # (Auto) 0.9 K/mm3 (1.2-5.4) L 09/10/20 00:30 [place] # (Auto) 0.4 K/mm3 (0.0-0.8) 09/10/20 00:30 Eos # (Auto) 0.0 K/mm3 (0.0-0.4) 09/10/20 00:30 Baso # (Auto) 0.0 K/mm3 (0.0-0.1) 09/10/20 00:30 Seg Neutrophils % 82.3 % (40.0-70.0) H 09/10/20 00:30 Seg Neutrophils # 6.0 K/mm3 (1.8-7.7) 09/10/20 00:30 Sodium 138 mmol/L (137-145) 09/10/20 00:30 Potassium 4.6 mmol/L (3.6-5.0) D 09/10/20 09:21 Chloride 98.6 mmol/L (98-107) 09/10/20 00:30 Carbon Dioxide 24 mmol/L (22-30) 09/10/20 00:30 Anion Gap 18 mmol/L 09/10/20 00:30 BUN 12 mg/dL (7-17) 09/10/20 00:30 Creatinine 0.5 mg/dL (0.6-1.2) L 09/10/20 00:30 Estimated GFR > 60 ml/min 09/10/20 00:30 BUN/Creatinine Ratio 24 % 09/10/20 00:30 Glucose 146 mg/dL (65-100) H 09/10/20 00:30 Calcium 9.2 mg/dL (8.4-10.2) 09/10/20 00:30 Total Bilirubin 1.80 mg/dL (0.1-1.2) H 09/11/20 04:43 Direct Bilirubin 1.1 mg/dL (0-0.2) H 09/11/20 04:43 Indirect Bilirubin 0.7 mg/dL 09/11/20 04:43 AST 43 units/L (5-40) H 09/11/20 04:43 ALT 47 units/L (7-56) 09/11/20 04:43 Alkaline Phosphatase 402 units/L (35-129) H 09/11/20 04:43 Total Protein 6.3 g/dL (6.3-8.2) 09/11/20 04:43 Albumin 3.2 g/dL (3.9-5) L 09/11/20 04:43 Albumin/Globulin Ratio 1.0 % 09/11/20 04:43 Lipase 184 units/L (13-60) H 09/10/20 00:30 Urine Color Yellow (Yellow) 09/11/20 Unknown Urine Turbidity Clear (Clear) 09/11/20 Unknown Urine pH 8.0 (5.0-7.0) H 09/11/20 Unknown Ur Specific [place] 1.008 (1.003-1.030) 09/11/20 Unknown Urine Protein <15 mg/dl mg/dL (Negative) 09/11/20 Unknown Urine Glucose (UA) Neg mg/dL (Negative) 09/11/20 Unknown Urine Ketones Neg mg/dL (Negative) 09/11/20 Unknown Urine Blood Sm (Negative) 09/11/20 Unknown Urine Nitrite Neg (Negative) 09/11/20 Unknown Urine Bilirubin Neg (Negative) 09/11/20 Unknown Urine Urobilinogen < 2.0 mg/dL (<2.0) 09/11/20 Unknown Ur Leukocyte Esterase Neg (Negative) 09/11/20 Unknown Urine WBC (Auto) < 1.0 /HPF (0.0-6.0) 09/11/20 Unknown Urine RBC (Auto) 13.0 /HPF (0.0-6.0) 09/11/20 Unknown U Epithel Cells (Auto) < 1.0 /HPF (0-13.0) 09/11/20 Unknown Urine Mucus Few /HPF 09/11/20 Unknown Momin/IV: Voiding Method Toilet IV Catheter Type [Left Forearm INT / Saline Lock ] IV Catheter Type [Left Hand] INT / Saline Lock Active Medications - Current Medications Current Medications: Generic Name Dose Route Start Last Admin Trade Name Freq PRN Reason Stop Dose Admin Acetaminophen 650 mg 09/10/20 06:20 Tylenol [place] Q4H PRN Fever >101 Hydromorphone HCl 1 mg 09/10/20 06:18 09/11/20 05:36 Dilaudid IV 1 mg Q4H PRN Administration Pain , Severe (7-10) Sodium Chloride 1,000 mls @ 75 mls/hr 09/10/20 06:30 09/11/20 05:41 Nacl 0.9% 1000 Ml IV 75 mls/hr DIRECT DHARMESH Administration Ondansetron HCl 4 mg 09/10/20 06:18 Zofran IV Q8H PRN Nausea And Vomiting Nutrition/Malnutrition Assess - Dietary Evaluation Nutrition/Malnutrition Findings: Nutrition Notes Start: 09/10/20 15:51 Freq: Status: Active Protocol: Document 09/10/20 15:52 AL (Rec: 09/10/20 16:17 AL [email or web address]) Co-Sign 09/10/20 15:52 MK Nutrition Notes 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 33% wt change. Weight Status Underweight Subjective/Other Information RD consulted for low BMI. Pt currently on clear liquid diet and is ready for advancement. Pt. has no appetite issues, but is concerned about decreased weight. Pt chart reviewed from 3 days ago. Pt eats 100% of clear liquid diet and wants to have Ensure Clear Apple. Percent of energy/protein needs met: 36%/32% Burn Absent Trauma Absent GI Symptoms None Minimum of two criteria No physical signs of malnutrition #2 Nutrition Diagnosis Inadequate oral intake Etiology Clear liquid diet As Evidenced by Signs and Symptoms pt meeting 30% of energy and protein needs #1 Nutrition Diagnosis Underweight Etiology Adbominal surgery As Evidenced by Signs and Symptoms BMI 17.0 Is patient on ventilator? No Is Patient Ambulatory and/or Out of Bed Yes REE-([place]-St. Jeor-ambulatory/OOB) [ 1229.254 NUTR.[id number]] Kcal/Kg value to use for calculation 40 Approximate Energy Requirements Using 1633 kcal/Kg Calculation Used for Recommendations Kcal/kg Additional Notes 50-60 g Pro/day(1.25-1.5 g/kg) Fluids: 1 ml/kcal Nutrition Intervention Change Diet Order: Continue Nutrition Support: Ensure Clear Apple TID Kcal 720 Protein (gm) 24 Goal #1 Tolerate current diet and ONS supplement Goal #2 Advance to Cardiac Diet when medically appropriate. Anticipated Discharge Needs: Cardiac Diet Follow-Up By: 09/13/20 Additional Comments FU for ONS tolerance, diet advancement, and NFPE
[2020-09-11] MEDS: FAMOTIDINE 20 MG TAB PO SCH ×2 (11:20→21:29)
--- NOTE | 2020-09-11 13:01 | Event Note ---
Date: 09/11/20 Waiting on GI to determine if ERCP to be done in Hospital or in a delayed manner, I really have nothing else to offer at this point.I would try to limit iv narcotics as much as possible in this patient, she should be able to take PO pain meds.
[2020-09-11] MEDS ORDERED: NON-FORMULARY EACH (Lisinopril [Zestril Tab] 30 MG) PO SCH (13:30)
--- NOTE | 2020-09-11 13:38 | Discharge Summary ---
Providers - Providers Date of Admission: 09/10/20 04:28 Date of discharge: 09/13/20 Attending physician: BLAKE NAVAS MD 09/10/20 04:12 Consult to Physician [CONS] Routine Comment: Dr. uLtz spoke with Dr. Steven @ [phone] Consulting Provider: MARISA STEVEN Physician Instructions: Reason For Exam: choledocholithiasis 09/10/20 06:15 Consult to Physician [CONS] Routine Comment: Consulting Provider: LAURIE CARDOSO Physician Instructions: Reason For Exam: 3 DAYS POST OP CASE WITH ABDOMINAL PAIN , Primary care physician: TRUCK STRIKER Hospitalization Reason for admission: abdominal pain, choledocholithiasis Condition: Serious Procedures: ERCP Hospital course: History of present illness, patient is a 55-year-old female who recently had abdominal surgery for small bowel obstruction here in this hospital about 3 to 4 days ago, also patient was found to have choledocholithiasis and was discharged to follow-up with [facility] in 1 to 2 weeks. Patient came back with abdominal pain that became progressively worse going on for about 3 to 4 days with nausea and vomiting, there was no history of fever or chills, there was no history of diarrhea or constipation, patient also denies any history of shortness of breath or body aches. (1) Abdominal pain Current Visit: Yes Status: Acute Qualifiers: Abdominal location: unspecified location Qualified Code(s): R10.9 - Unspecified abdominal pain Plan to address problem: -Pain is controlled with pain medication. Patient ran out of her pain medication. Patient scheduled to see her primary care physician for pain medicine at discharge. -Patient was seen by general surgery and he is okay to do ERCP if needed (2) Choledocholithiasis Current Visit: Yes Status: Acute Plan to address problem: -GI saw the patient and will repeat LFTs and will decide the need for ERCP -Bilirubin trended down from 3-1.8, alk phos decreased from 520- 420 -Surgery cleared for ERCP -ERCP was done on 09/12/2020 and removal of some stone and stent was placed (3) Hypokalemia Current Visit: No Status: Acute Plan to address problem: -Repleted Patient's abdominal pain is getting better. Patient was seen by general surgery and recommend to see her in 2 weeks for cholecystectomy. GI will follow her in the office. Patient was hemodynamically stable at the time of discharge. Disposition: DC-01 TO HOME OR SELFCARE Time spent for discharge: 32 minutes - Discharge Diagnoses (1) Abdominal pain Status: Acute Qualifiers: Abdominal location: unspecified location Qualified Code(s): R10.9 - Unspecified abdominal pain (2) Choledocholithiasis Status: Acute (3) Cholelithiasis Status: Acute Qualifiers: Cholelithiasis location: gallbladder and bile duct Cholecystitis presence: without cholecystitis Biliary obstruction: with biliary obstruction Qual ified Code(s): K80.71 - Calculus of gallbladder and bile duct without cholecystitis with obstruction (4) Elevated LFTs Status: Acute (5) Elevated bilirubin Status: Acute (6) Hypokalemia Status: Acute Core Measure Documentation - Palliative Care Palliative Care/ Comfort Measures: Not Applicable - Core Measures Any of the following diagnoses?: none Exam - Physical Exam Narrative exam: Not in cardiopulmonary distress. The patient appeared well nourished and normally developed. Vital signs as documented. Head exam is unremarkable. No scleral icterus . Neck is without jugular venous distension, thyromegaly, or carotid bruits. Lungs are clear to auscultation. Cardiac exam reveals regular rate and Rhythm. Abdominal exam clean surgical wound on the mid abdomen Extremities are nonedematous and both femoral and pedal pulses are normal. LEI SELLER: Alert and oriented 3. No focal weakness. - Constitutional Vitals: Temp Pulse Resp BP Pulse Ox 99.5 F 89 16 171/96 97 09/11/20 12:05 09/11/20 12:05 09/11/20 12:05 09/11/20 13:11 09/11/20 12:05 Plan Activity: no restrictions Weight Bearing Status: Full Weight Bearing Diet: advance as tolerated, other (Follow GI recommendations) Follow up with: ROSS VIVEROS MD [Primary Care Provider] - 7 Days LAURIE CARDOSO MD [Staff Physician] - 14 Days DIEUDONNE HERNANDEZ MD [Staff Physician] - 7 Days Prescriptions: oxyCODONE /ACETAMINOPHEN [Percocet 5/325 mg] 1 tab PO Q4HR #14 tab Pantoprazole [Protonix TAB] 40 mg PO QDAC #30 tablet
--- NOTE | 2020-09-11 14:32 | Event Note ---
Date: 09/11/20 Pt is 10 days post op today from adhesiolysis, no bowel resection, she can tolerated ERCP if indicated.
[2020-09-11] MEDS: LISINOPRIL 20 MG TAB PO SCH (17:39)
--- NOTE | 2020-09-11 18:33 | Gastroenterology Progress Note ---
Assessment and Plan Patient symptoms are worsening, spoke with advanced endoscopy and given patient is clinically worsening will pursue inpatient ERCP tomorrow. N.p.o. past midnight Patient is not currently on any blood thinners - Patient Problems (1) Abdominal pain Current Visit: Yes Status: Acute Qualifiers: Abdominal location: unspecified location Qualified Code(s): R10.9 - Unspecified abdominal pain (2) Choledocholithiasis Current Visit: Yes Status: Acute (3) Cholelithiasis Current Visit: Yes Status: Acute Qualifiers: Cholelithiasis location: gallbladder and bile duct Cholecystitis presence: without cholecystitis Biliary obstruction: with biliary obstruction Qualified Code(s): K80.71 - Calculus of gallbladder and bile duct without cholecystitis with obstruction (4) Elevated LFTs Current Visit: Yes Status: Acute Subjective Date of service: 09/11/20 Principal diagnosis: Choledocholithiasis Interval history: Patient's liver enzymes are improving However she reports her abdominal pain is much worse today. She reports severe abdominal pain right upper quadrant and right mid abdomen 10 out of 10 severe sharp radiating to the back constant worse with palpation slightly better with pain medication no associated symptoms duration days Objective - Constitutional Vitals: Temp Pulse Resp BP Pulse Ox 98.7 F 81 17 175/109 99 09/11/20 17:38 09/11/20 17:39 09/11/20 17:38 09/11/20 17:39 09/11/20 17:38 General appearance: no acute distress - EENT Eyes: EOM intact - Respiratory Respiratory effort: normal - Cardiovascular Rhythm: regular - Gastrointestinal General gastrointestinal: Present: other (Healing vertical incision with kiersten in place. Positive bowel sounds. Mild tenderness to palpation of left hemiabdomen. Severe tenderness palpation right upper quadrant and significant tenderness to palpation remainder of right hemiabdomen) - Labs CBC & Chem 7: 09/10/20 00:30 09/10/20 09:21 Labs: Laboratory Results - last 24 hr 09/11/20 09/11/20 04:43 Unknown Total Bilirubin 1.80 H Direct Bilirubin 1.1 H Indirect Bilirubin 0.7 AST 43 H ALT 47 Alkaline Phosphatase 402 H Total Protein 6.3 Albumin 3.2 L Albumin/Globulin Ratio 1.0 Urine Color Yellow Urine Turbidity Clear Urine pH 8.0 H Ur Specific [place] 1.008 Urine Protein <15 mg/dl Urine Glucose (UA) Neg Urine Ketones Neg Urine Blood Sm Urine Nitrite Neg Urine Bilirubin Neg Urine Urobilinogen < 2.0 Ur Leukocyte Esterase Neg Urine WBC (Auto) < 1.0 Urine RBC (Auto) 13.0 U Epithel Cells (Auto) < 1.0 Urine Mucus Few
[2020-09-12] MEDS: HYDROmorphone 1 MG/1 ML INJ IV PRN ×4 (04:42→20:25)
--- NOTE | 2020-09-12 07:21 | Event Note ---
Date: 09/12/20 Apparently, plan is for ERCP today, once this is done, I will hold off performing cholecystecomy as long as possible/ reasonable to allow more time for intra-abdominal inflammation to resolve, which will make it more probable I can perform the cholecystectomy laparoscopically. The risk of passing another stone into her common duct is only about 19% in 6 weeks, therefore this will allow me more time and optimize chance of successful lap cholecystectomy/ versus open cholecystectomy , we shall see. This patient has issues with pain management and really requires excessive pain medication use, hopefully this can be discouraged as much as possible. Therefore, the present plan is to discharge patient following ERCP once GI is comfortable after the procedure/ ERCP.
[2020-09-12] MEDS: FAMOTIDINE 20 MG TAB PO SCH ×2 (08:27→10:11)
[2020-09-12] MEDS: LISINOPRIL 20 MG TAB PO SCH ×2 (08:27→10:11)
[2020-09-12] MEDS ORDERED: SODIUM CHLORIDE 0.9% 1000 ML 1,000 ML IV SCH (11:15)
[2020-09-12] MEDS ORDERED: SODIUM CHLORIDE 0.9% 1000 ML 1,000 ML ONE (12:03)
[2020-09-12] MEDS ORDERED: SODIUM CHLORIDE 0.9% 100 ML ONE (12:11)
[2020-09-12] MEDS ORDERED: WATER FOR IRRIG STERILE 1,000 ML BOTTLE ONE (12:12)
--- NOTE | 2020-09-12 12:22 | Anesthesia Day of Surgery ---
Anesthesia Day of Surgery - Day of Surgery Patient Examined: Yes Patient H&P Reviewed: Yes Patient is NPO: Yes
--- NOTE | 2020-09-12 12:25 | Anesthesia Consultation ---
Anesthesia Consult and Med Hx Date of service: 09/12/20 - Airway Anesthetic Teeth Evaluation: Dentures, Edentulous ROM Head & Neck: Adequate Mental/Hyoid Distance: Adequate Mallampati Class: Class II Intubation Access Assessment: Good - Pre-Operative Health Status ASA Pre-Surgery Classification: ASA2 Proposed Anesthetic Plan: MAC (MAC; GA if needed) - Pulmonary Hx Smoking: Yes (4 Cigs/Days) Hx Asthma: No Hx Respiratory Symptoms: No SOB: No COPD: No Hx Pneumonia: Yes Hx Sleep Apnea: Yes - Cardiovascular System Hx Hypertension: Yes Hx Coronary Artery Disease: No Hx Heart Attack/AMI: No Hx Angina: No Hx Percutaneous Transluminal Coronary Angioplasty (PTCA): No Hx Cardia Arrhythmia: No Hx Pacemaker: No Hx Internal Defibrillator: No Hx Valvular Heart Disease: No Hx Heart Murmur: No Hx Peripheral Vascular Disease: No - Central Nervous System Hx Neuromuscular Disorder: No Hx Seizures: Yes CVA: No Hx Back Pain: No Hx Psychiatric Problems: No - Gastrointestinal Hx Ulcer: No Hx Gastroesophageal Reflux Disease: No - Endocrine Hx Renal Disease: No Hx End Stage Renal Disease: No Hx Cirrhosis: No Hx Liver Disease: No Hx Insulin Dependent Diabetes: No Hx Non-Insulin Dependent Diabetes: No Hx Thyroid Disease: No Hx Hypothyroidism: No Hx Hyperthyroidism: No - Hematic Hx Anemia: No Hx Sickle Cell Disease: No - Other Systems Hx Alcohol Use: No Hx Substance Use: No Hx Cancer: No Hx Obesity: No - Additional Comments Anesthesia Medical History Comments: Had X-Lap here [id number]
[2020-09-12] MEDS ORDERED: LIDOCAINE MPF (2%) 20 MG/1 ML VIAL 5 ML ONE (12:32)
[2020-09-12] MEDS ORDERED: fentaNYL 100 MCG/2 ML INJ ONE (12:33)
[2020-09-12] MEDS ORDERED: MIDAZOLAM 2 MG/2 ML INJ ONE (12:33)
[2020-09-12] MEDS ORDERED: propofoL 200 MG/20 ML VIAL IV ONE ×2 (12:34→13:03)
[2020-09-12] MEDS ORDERED: METOPROLOL TARTRATE 5 MG/5 ML INJ IV ONE (13:17)
--- NOTE | 2020-09-12 13:19 | Post Operative Note ---
Pre-op diagnosis: CBD stones Post-op diagnosis: same Findings: 1. Normal ampulla 2. PD not cannulated 3. CBD cannulated with fusiontome/.035 guidewire - Dilated to 15mm - Multiple filling defects - Large sphincterotomy - 12mm balloon through CBD x 3 with removal of large stones but at least one residual stones remain in CBD and CHD (large, >1cm) - 10Fr x 5cm Biliary stent placed Procedure: ERCP with biliary sphincterotomy, balloon sweep of CBD, and bililary stent placement Anesthesia: MAC Surgeon: JESUS ADAMS Estimated blood loss: minimal Pathology: none Specimen disposition: other (N/A) Condition: stable Disposition: floor (Recs: 1. Advance diet and monitor LFTs. 2. Large stone(s) remain in dilated duct; suspect patient will need lithotripsy (as outpatient). 3. If stable, OK to d/c home tomorrow and will arrange lithotripsy as outpatient at [facility]. 4. Avoid NSAIDs, and protonix QD given size of sphincterotomy)
--- NOTE | 2020-09-12 14:17 | Operative Report ---
PROCEDURE PERFORMED: Endoscopic retrograde cholangiopancreatography with biliary sphincterotomy, balloon sweeping of the common bile duct, and biliary stent placement. PREOPERATIVE DIAGNOSIS: Choledocholithiasis. POSTOPERATIVE DIAGNOSIS: Choledocholithiasis. ENDOSCOPIST: Declan Thompson MD INSTRUMENT: Olympus video endoscope. MEDICATIONS: MAC anesthesia by [facility]. COMPLICATIONS: No apparent complications. ESTIMATED BLOOD LOSS: Minimal. SPECIMENS: None. IMPLANTS: A 10-Afghan x 5 cm dual-flanged biliary stent placed in the common bile duct, MRI compatible. ASSISTANTS: None. CONDITION AT COMPLETION: Stable. TECHNIQUE: The patient was informed of the risks and benefits of the procedure. She signed the informed consent to proceed. She was placed in the prone position. The above sedative medications were given. Her vital signs remained stable throughout the procedure. The instrument was advanced from the mouth to the ampulla under direct visualization. At that point, the bowel was insufflated and the endoscope was slowly withdrawn. The ampulla was normal in shape and size. The pancreatic duct was not cannulated or injected during the procedure. The common bile duct was cannulated using a 0.035 guidewire and a fusion sphincterotome. At that point, a cholangiogram was obtained, which showed dilation to 1.5 cm, and numerous filling defects in the common hepatic duct and common bile duct. A large sphincterotomy was performed. A 12 mm biliary balloon was swept through the common hepatic and common bile duct 4 times. We removed several large brown gallstones, and a large amount of sludge. However, at least 1, large, greater than 1 cm gallstone remained in the common bile duct that we were unable to retrieve. We elected to place a 10-[place]ghan x 5 cm biliary stent across the ampulla and there was good flow of bile. The procedure was terminated. FINDINGS: 1. Normal ampulla. 2. Pancreatic duct was not cannulated or injected. 3. Common bile duct was cannulated using a fusion sphincterotome and a 0.035 guidewire. A. The common bile duct was dilated to 15 mm, with numerous large filling defects. B. A large sphincterotomy was performed. C. A 12 mm balloon was swept through the common bile duct 4 times with removal of several large gallstones as well as a large amount of sludge, but at least 1 large residual gallstone, at least 1 cm in size, remained in the distal common bile duct and could not be retrieved. D. A 10-[place]ghan x 5 cm biliary stent was placed across the ampulla into the common bile duct with adequate drainage of bile. RECOMMENDATIONS: 1. Advance diet, monitor liver enzymes. 2. Large gallstone remaining in the distal common bile duct; I suspect the patient will need lithotripsy as an outpatient. 3. If the patient is stable, okay to discharge home and we will arrange lith[facility]ri[facility] an [facility]. 4. Avoid nonsteroidal anti-inflammatory drugs, and give Protonix daily therapy given the size of the sphincterotomy. JOB# [id number] EUNICE/CARLOTA
--- NOTE | 2020-09-12 14:23 | Progress Note ---
Assessment and Plan Assessment and plan: (1) Abdominal pain Current Visit: Yes Status: Acute Qualifiers: Abdominal location: unspecified location Qualified Code(s): R10.9 - Unspecified abdominal pain Plan to address problem: -Pain is controlled with pain medication. Patient ran out of her pain medication. Patient scheduled to see her primary care physician for pain medicine at discharge. -Patient was seen by general surgery and he is okay to do ERCP if needed (2) Choledocholithiasis Current Visit: Yes Status: Acute Plan to address problem: -GI saw the patient and will repeat LFTs and will decide the need for ERCP -Bilirubin trended down from 3-1.8, alk phos decreased from 520- 420 -Surgery cleared for ERCP (3) Hypokalemia Current Visit: No Status: Acute Plan to address problem: -Repleted Disposition; GI recommended to monitor her today and discharge tomorrow if LFTs are getting better. - Patient Problems (1) Abdominal pain Current Visit: Yes Status: Acute Qualifiers: Abdominal location: unspecified location Qualified Code(s): R10.9 - Unspecified abdominal pain (2) Choledocholithiasis Current Visit: Yes Status: Acute (3) Cholelithiasis Current Visit: Yes Status: Acute Qualifiers: Cholelithiasis location: gallbladder and bile duct Cholecystitis presence: without cholecystitis Biliary obstruction: with biliary obstruction Qualified Code(s): K80.71 - Calculus of gallbladder and bile duct without cholecystitis with obstruction (4) Elevated LFTs Current Visit: Yes Status: Acute (5) Elevated bilirubin Current Visit: Yes Status: Acute (6) Hypokalemia Current Visit: No Status: Acute History Interval history: Patient was seen and evaluated this morning Patient did not have any complaints Hospitalist Physical - Physical exam Narrative exam: Not in cardiopulmonary distress. The patient appeared well nourished and normally developed. Vital signs as documented. Head exam is unremarkable. No scleral icterus . Neck is without jugular venous distension, thyromegaly, or carotid bruits. Lungs are clear to auscultation. Cardiac exam reveals regular rate and Rhythm. Abdominal exam clean surgical wound on the mid abdomen Extremities are nonedematous and both femoral and pedal pulses are normal. 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 No focal weakness. - Constitutional Vitals: Temp Pulse Resp BP Pulse Ox 99.2 F 80 14 119/68 97 09/12/20 13:27 09/12/20 14:00 09/12/20 14:00 09/12/20 14:00 09/12/20 14:00 General appearance: Present: mild distress HEART Score - HEART Score Age: 45-65 Risk factors: 1-2 risk factors Troponin: < normal limit - Critical Actions Critical Actions: 0-3 pts:0.9-1.7%risk of adverse cardiac event.Candidate for discharge Results - Labs CBC & Chem 7: 09/10/20 00:30 09/10/20 09:21 Labs: Laboratory Last Values WBC 7.3 K/mm3 (4.5-11.0) 09/10/20 00:30 RBC 3.89 M/mm3 (3.65-5.03) 09/10/20 00:30 Hgb 11.4 gm/dl (10.1-14.3) 09/10/20 00:30 Hct 34.5 % (30.3-42.9) 09/10/20 00:30 MCV 89 fl (79-97) 09/10/20 00:30 MCH 29 pg (28-32) 09/10/20 00:30 MCHC 33 % (30-34) 09/10/20 00:30 RDW 14.8 % (13.2-15.2) 09/10/20 00:30 Plt Count 363 K/mm3 (140-440) 09/10/20 00:30 Lymph % (Auto) 11.7 % (13.4-35.0) L 09/10/20 00:30 [place] % (Auto) 5.5 % (0.0-7.3) 09/10/20 00:30 Eos % (Auto) 0.1 % (0.0-4.3) 09/10/20 00:30 Baso % (Auto) 0.4 % (0.0-1.8) 09/10/20 00:30 Lymph # (Auto) 0.9 K/mm3 (1.2-5.4) L 09/10/20 00:30 [place] # (Auto) 0.4 K/mm3 (0.0-0.8) 09/10/20 00:30 Eos # (Auto) 0.0 K/mm3 (0.0-0.4) 09/10/20 00:30 Baso # (Auto) 0.0 K/mm3 (0.0-0.1) 09/10/20 00:30 Seg Neutrophils % 82.3 % (40.0-70.0) H 09/10/20 00:30 Seg Neutrophils # 6.0 K/mm3 (1.8-7.7) 09/10/20 00:30 Sodium 138 mmol/L (137-145) 09/10/20 00:30 Potassium 4.6 mmol/L (3.6-5.0) D 09/10/20 09:21 Chloride 98.6 mmol/L (98-107) 09/10/20 00:30 Carbon Dioxide 24 mmol/L (22-30) 09/10/20 00:30 Anion Gap 18 mmol/L 09/10/20 00:30 BUN 12 mg/dL (7-17) 09/10/20 00:30 Creatinine 0.5 mg/dL (0.6-1.2) L 09/10/20 00:30 Estimated GFR > 60 ml/min 09/10/20 00:30 BUN/Creatinine Ratio 24 % 09/10/20 00:30 Glucose 146 mg/dL (65-100) H 09/10/20 00:30 Calcium 9.2 mg/dL (8.4-10.2) 09/10/20 00:30 Total Bilirubin 1.80 mg/dL (0.1-1.2) H 09/11/20 04:43 Direct Bilirubin 1.1 mg/dL (0-0.2) H 09/11/20 04:43 Indirect Bilirubin 0.7 mg/dL 09/11/20 04:43 AST 43 units/L (5-40) H 09/11/20 04:43 ALT 47 units/L (7-56) 09/11/20 04:43 Alkaline Phosphatase 402 units/L (35-129) H 09/11/20 04:43 Total Protein 6.3 g/dL (6.3-8.2) 09/11/20 04:43 Albumin 3.2 g/dL (3.9-5) L 09/11/20 04:43 Albumin/Globulin Ratio 1.0 % 09/11/20 04:43 Lipase 184 units/L (13-60) H 09/10/20 00:30 Urine Color Yellow (Yellow) 09/11/20 Unknown Urine Turbidity Clear (Clear) 09/11/20 Unknown Urine pH 8.0 (5.0-7.0) H 09/11/20 Unknown Ur Specific [place] 1.008 (1.003-1.030) 09/11/20 Unknown Urine Protein <15 mg/dl mg/dL (Negative) 09/11/20 Unknown Urine Glucose (UA) Neg mg/dL (Negative) 09/11/20 Unknown Urine Ketones Neg mg/dL (Negative) 09/11/20 Unknown Urine Blood Sm (Negative) 09/11/20 Unknown Urine Nitrite Neg (Negative) 09/11/20 Unknown Urine Bilirubin Neg (Negative) 09/11/20 Unknown Urine Urobilinogen < 2.0 mg/dL (<2.0) 09/11/20 Unknown Ur Leukocyte Esterase Neg (Negative) 09/11/20 Unknown Urine WBC (Auto) < 1.0 /HPF (0.0-6.0) 09/11/20 Unknown Urine RBC (Auto) 13.0 /HPF (0.0-6.0) 09/11/20 Unknown U Epithel Cells (Auto) < 1.0 /HPF (0-13.0) 09/11/20 Unknown Urine Mucus Few /HPF 09/11/20 Unknown Momin/IV: Voiding Method Toilet IV Catheter Type [Left Forearm INT / Saline Lock ] IV Catheter Type [Left Hand] INT / Saline Lock Active Medications - Current Medications Current Medications: Generic Name Dose Route Start Last Admin Trade Name Freq PRN Reason Stop Dose Admin Acetaminophen 650 mg 09/10/20 06:20 Tylenol NV Q4H PRN Fever >101 Hydromorphone HCl 1 mg 09/10/20 06:18 09/12/20 08:42 Dilaudid IV 1 mg Q4H PRN Administration Pain , Severe (7-10) Sodium Chloride 1,000 mls @ 50 mls/hr 09/12/20 11:15 Nacl 0.9% 1000 Ml IV DIRECT DHARMESH Labetalol HCl 200 mg 09/11/20 14:00 09/11/20 21:29 Labetalol PO 200 mg BID DHARMESH Administration Lisinopril 30 mg 09/11/20 16:00 09/12/20 10:11 Zestril PO Not Given QDAY DHARMESH Ondansetron HCl 4 mg 09/10/20 06:18 09/11/20 21:31 Zofran IV 4 mg Q8H PRN Administration Nausea And Vomiting Pantoprazole Sodium 40 mg 09/12/20 14:00 Protonix PO QDAC [facility] Nutrition/Malnutrition Assess - Dietary Evaluation Nutrition/Malnutrition Findings: Nutrition Notes Start: 09/10/20 15:51 Freq: Status: Active Protocol: Document 09/10/20 15:52 AL (Rec: 09/10/20 16:17 AL [email or web address]) Co-Sign 09/10/20 15:52 MK Nutrition Notes 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 33% wt change. Weight Status Underweight Subjective/Other Information RD consulted for low BMI. Pt currently on clear liquid diet and is ready for advancement. Pt. has no appetite issues, but is concerned about decreased weight. Pt chart reviewed from 3 days ago. Pt eats 100% of clear liquid diet and wants to have Ensure Clear Apple. Percent of energy/protein needs met: 36%/32% Burn Absent Trauma Absent GI Symptoms None Minimum of two criteria No physical signs of malnutrition #2 Nutrition Diagnosis Inadequate oral intake Etiology Clear liquid diet As Evidenced by Signs and Symptoms pt meeting 30% of energy and protein needs #1 Nutrition Diagnosis Underweight Etiology Adbominal surgery As Evidenced by Signs and Symptoms BMI 17.0 Is patient on ventilator? No Is Patient Ambulatory and/or Out of Bed Yes REE-([place]. Jeor-ambulatory/OOB) [ 1229.254 NUTR.MSJOOB] Kcal/Kg value to use for calculation 40 Approximate Energy Requirements Using 1633 kcal/Kg Calculation Used for Recommendations Kcal/kg Additional Notes 50-60 g Pro/day(1.25-1.5 g/kg) Fluids: 1 ml/kcal Nutrition Intervention Change Diet Order: Continue Nutrition Support: Ensure Clear Apple TID Kcal 720 Protein (gm) 24 Goal #1 Tolerate current diet and ONS supplement Goal #2 Advance to Cardiac Diet when medically appropriate. Anticipated Discharge Needs: Cardiac Diet Follow-Up By: 09/13/20 Additional Comments FU for ONS tolerance, diet advancement, and NFPE
--- NOTE | 2020-09-12 14:28 | Fluoroscopy Report ---
12 fluoroscopic images submitted Indication: Intraoperative localization Impression: 12 images of the right upper quadrant were submitted for documentation purposes with rad iology involvement. The CBD was cannulated, with balloon sweep performed and stones removed. A papil lotomy was performed and a biliary stent was placed. Approximately 40 mL of Omnipaque 300 was utilize d for this exam. Please refer to the operative note for complete details. Fluoroscopic time: 1 minute and 44 seconds Signer Name: Wade Teran MD Signed: 09/12/2020 2:24 PM Workstation Name: [id number]
--- NOTE | 2020-09-12 15:03 | Post Anesthesia Evaluation ---
- Post Anesthesia Evaluation Patient Participated: Yes Airway Patent: Yes Stable Respiratory Function: Yes Nausea/Vomiting: No Temp > 96.8F: Yes Pain Manageable: Yes Adequeate Hydration: Yes Anesthesia Complications: No Block Receding Appropriately: Not Applicable Patient on Ventilator: No
[2020-09-12] MEDS: PANTOPRAZOLE 40 MG TAB PO SCH (15:30)
--- NOTE | 2020-09-12 19:04 | Event Note ---
Date: 09/12/20 Pt can be discharged from General surgical standpoint, will need f/u with GI/ further advanced ERCP intervention for residual common duct stones/ I will be happy to see in follow up in my office for staple removal, etc.
[2020-09-13] MEDS: HYDROmorphone 1 MG/1 ML INJ IV PRN ×2 (00:02→08:43)
[2020-09-13 06:29] LABS: Alanine Aminotransferase 26 units/L (7-56); Albumin 2.9 g/dL (3.9-5); Blood Urea Nitrogen 8 mg/dL (7-17); Calcium 8.5 mg/dL (8.4-10.2); Hemolysis Index 0
[2020-09-13 06:33] LABS: BUN/Creatinine Ratio 16
[2020-09-13] MEDS: PANTOPRAZOLE 40 MG TAB PO SCH (08:43)
--- NOTE | 2020-09-13 09:10 | Gastroenterology Progress Note ---
Assessment and Plan Patient gradually improving status post ERCP She may be discharged, she will need to be set up with us for outpatient [facility], we will reach out to her in the next 1 week to arrange this. Please provide her with our office information in case we have difficulty getting in touch with her that she should call us if she has not heard from us within 1 week - Patient Problems (1) Abdominal pain Current Visit: Yes Status: Acute Qualifiers: Abdominal location: unspecified location Qualified Code(s): R10.9 - Unspecified abdominal pain (2) Choledocholithiasis Current Visit: Yes Status: Acute (3) Cholelithiasis Current Visit: Yes Status: Acute Qualifiers: Cholelithiasis location: gallbladder and bile duct Cholecystitis presence: without cholecystitis Biliary obstruction: with biliary obstruction Qualified Code(s): K80.71 - Calculus of gallbladder and bile duct without cholecystitis with obstruction (4) Elevated LFTs Current Visit: Yes Status: Acute Subjective Date of service: 09/13/20 Principal diagnosis: Choledocholithiasis Interval history: Patient's liver enzymes are improving she reports improving abdominal pain Patient status post ERCP yesterday with removal of some stones and stent placement, see report for full details Patient reports currently with some pain at her surgical site from her laparotomy. She also reports mild to moderate right-sided abdominal pain cramping and sharp in nature is gradually improving intermittent duration 1 weekys Objective - Constitutional Vitals: Temp Pulse Resp BP Pulse Ox 99.0 F 82 20 133/73 98 09/13/20 08:59 09/13/20 08:59 09/13/20 08:59 09/13/20 08:59 09/13/20 08:59 General appearance: no acute distress - EENT Eyes: EOM intact - Respiratory Respiratory effort: normal - Cardiovascular Rhythm: regular - Gastrointestinal General gastrointestinal: Present: other (Roladn in place vertical line mid abdomen. Mild tenderness to palpation left abdomen moderate tenderness to palpation right abdomen. Normal bowel sounds) - Labs CBC & Chem 7: 09/10/20 00:30 09/13/20 05:55 Labs: Laboratory Results - last 24 hr 09/13/20 05:55 Sodium 141 Potassium 3.0 L D Chloride 103.8 Carbon Dioxide 25 Anion Gap 15 BUN 8 Creatinine 0.5 L Estimated GFR > 60 BUN/Creatinine Ratio 16 Glucose 107 H Calcium 8.5 Total Bilirubin 1.00 AST 15 ALT 26 Alkaline Phosphatase 290 H Total Protein 5.8 L Albumin 2.9 L Albumin/Globulin Ratio 1.0
[2020-09-13] MEDS ORDERED: oxyCODONE /ACETAMINOPHEN 5-325MG TAB PO PRN (09:30)
[2020-09-13] MEDS: LISINOPRIL 20 MG TAB PO SCH (10:04)
[2020-09-13] MEDS: POTASSIUM CHLORIDE ER 20 MEQ TAB PO NR ×2 (10:04→15:07)
[2020-09-13] MEDS ORDERED: POTASSIUM CHLORIDE ER 20 MEQ TAB PO NR (12:00)
[2020-09-13 16:51] VITALS: BP 135/75
[2020-09-14] MEDS ORDERED: oxyCODONE /ACETAMINOPHEN 5-325MG TAB PO PRN (05:27)
--- NOTE | 2020-09-14 07:19 | Progress Note ---
Assessment and Plan Assessment and plan: (1) Abdominal pain Current Visit: Yes Status: Acute Qualifiers: Abdominal location: unspecified location Qualified Code(s): R10.9 - Unspecified abdominal pain Plan to address problem: -Pain is controlled with pain medication. Patient ran out of her pain medication. Patient scheduled to see her primary care physician for pain medicine at discharge. -Patient was seen by general surgery and he is okay to do ERCP if needed (2) Choledocholithiasis Current Visit: Yes Status: Acute Plan to address problem: -GI saw the patient and will repeat LFTs and will decide the need for ERCP -Bilirubin trended down from 3-1.8, alk phos decreased from 520- 420 -Surgery cleared for ERCP -ERCP was done on 09/12/2020 and removal of some stone and stent was placed (3) Hypokalemia Current Visit: No Status: Acute Plan to address problem: -Repleted Disposition; stable for discharge. - Patient Problems (1) Abdominal pain Current Visit: Yes Status: Acute Qualifiers: Abdominal location: unspecified location Qualified Code(s): R10.9 - Unspecified abdominal pain (2) Choledocholithiasis Current Visit: Yes Status: Acute (3) Cholelithiasis Current Visit: Yes Status: Acute Qualifiers: Cholelithiasis location: gallbladder and bile duct Cholecystitis presence: without cholecystitis Biliary obstruction: with biliary obstruction Qualified Code(s): K80.71 - Calculus of gallbladder and bile duct without cholecystitis with obstruction (4) Elevated LFTs Current Visit: Yes Status: Acute (5) Elevated bilirubin Current Visit: Yes Status: Acute (6) Hypokalemia Current Visit: No Status: Acute History Interval history: Patient was seen and evaluated this morning Patient said pain is better controlled Hospitalist Physical - Physical exam Narrative exam: Not in cardiopulmonary distress. The patient cachectic. Vital signs as documented. Head exam is unremarkable. No scleral icterus . Neck is without jugular venous distension, thyromegaly, or carotid bruits. Lungs are clear to auscultation. Cardiac exam reveals regular rate and Rhythm. Abdominal exam clean surgical wound on the mid abdomen, mild abdominal tenderness Extremities are nonedematous and both femoral and pedal pulses are normal. 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 No focal weakness. - Constitutional Vitals: Temp Pulse Resp BP Pulse Ox 98.9 F 79 16 135/75 99 10/23/20 16:47 09/13/20 16:47 09/13/20 16:47 09/13/20 16:47 09/13/20 16:47 General appearance: Present: mild distress HEART Score - HEART Score Age: 45-65 Risk factors: 1-2 risk factors Troponin: < normal limit - Critical Actions Critical Actions: 0-3 pts:0.9-1.7%risk of adverse cardiac event.Candidate for discharge Results - Labs CBC & Chem 7: 09/10/20 00:30 09/13/20 05:55 Labs: Laboratory Last Values WBC 7.3 K/mm3 (4.5-11.0) 09/10/20 00:30 RBC 3.89 M/mm3 (3.65-5.03) 09/10/20 00:30 Hgb 11.4 gm/dl (10.1-14.3) 09/10/20 00:30 Hct 34.5 % (30.3-42.9) 09/10/20 00:30 MCV 89 fl (79-97) 09/10/20 00:30 MCH 29 pg (28-32) 09/10/20 00:30 MCHC 33 % (30-34) 09/10/20 00:30 RDW 14.8 % (13.2-15.2) 09/10/20 00:30 Plt Count 363 K/mm3 (140-440) 09/10/20 00:30 Lymph % (Auto) 11.7 % (13.4-35.0) L 09/10/20 00:30 [place] % (Auto) 5.5 % (0.0-7.3) 09/10/20 00:30 Eos % (Auto) 0.1 % (0.0-4.3) 09/10/20 00:30 Baso % (Auto) 0.4 % (0.0-1.8) 09/10/20 00:30 Lymph # (Auto) 0.9 K/mm3 (1.2-5.4) L 09/10/20 00:30 [place] # (Auto) 0.4 K/mm3 (0.0-0.8) 09/10/20 00:30 Eos # (Auto) 0.0 K/mm3 (0.0-0.4) 09/10/20 00:30 Baso # (Auto) 0.0 K/mm3 (0.0-0.1) 09/10/20 00:30 Seg Neutrophils % 82.3 % (40.0-70.0) H 09/10/20 00:30 Seg Neutrophils # 6.0 K/mm3 (1.8-7.7) 09/10/20 00:30 Sodium 141 mmol/L (137-145) 09/13/20 05:55 Potassium 3.0 mmol/L (3.6-5.0) L D 09/13/20 05:55 Chloride 103.8 mmol/L (98-107) 09/13/20 05:55 Carbon Dioxide 25 mmol/L (22-30) 09/13/20 05:55 Anion Gap 15 mmol/L 09/13/20 05:55 BUN 8 mg/dL (7-17) 09/13/20 05:55 Creatinine 0.5 mg/dL (0.6-1.2) L 09/13/20 05:55 Estimated GFR > 60 ml/min 09/13/20 05:55 BUN/Creatinine Ratio 16 % 09/13/20 05:55 Glucose 107 mg/dL (65-100) H 09/13/20 05:55 Calcium 8.5 mg/dL (8.4-10.2) 09/13/20 05:55 Total Bilirubin 1.00 mg/dL (0.1-1.2) 09/13/20 05:55 Direct Bilirubin 1.1 mg/dL (0-0.2) H 09/11/20 04:43 Indirect Bilirubin 0.7 mg/dL 09/11/20 04:43 AST 15 units/L (5-40) 09/13/20 05:55 ALT 26 units/L (7-56) 09/13/20 05:55 Alkaline Phosphatase 290 units/L (35-129) H 09/13/20 05:55 Total Protein 5.8 g/dL (6.3-8.2) L 09/13/20 05:55 Albumin 2.9 g/dL (3.9-5) L 09/13/20 05:55 Albumin/Globulin Ratio 1.0 % 09/13/20 05:55 Lipase 184 units/L (13-60) H 09/10/20 00:30 Urine Color Yellow (Yellow) 09/11/20 Unknown Urine Turbidity Clear (Clear) 09/11/20 Unknown Urine pH 8.0 (5.0-7.0) H 09/11/20 Unknown Ur Specific [place] 1.008 (1.003-1.030) 09/11/20 Unknown Urine Protein <15 mg/dl mg/dL (Negative) 09/11/20 Unknown Urine Glucose (UA) Neg mg/dL (Negative) 09/11/20 Unknown Urine Ketones Neg mg/dL (Negative) 09/11/20 Unknown Urine Blood Sm (Negative) 09/11/20 Unknown Urine Nitrite Neg (Negative) 09/11/20 Unknown Urine Bilirubin Neg (Negative) 09/11/20 Unknown Urine Urobilinogen < 2.0 mg/dL (<2.0) 09/11/20 Unknown Ur Leukocyte Esterase Neg (Negative) 09/11/20 Unknown Urine WBC (Auto) < 1.0 /HPF (0.0-6.0) 09/11/20 Unknown Urine RBC (Auto) 13.0 /HPF (0.0-6.0) 09/11/20 Unknown U Epithel Cells (Auto) < 1.0 /HPF (0-13.0) 09/11/20 Unknown Urine Mucus Few /HPF 09/11/20 Unknown Momin/IV: Voiding Method Toilet IV Catheter Type [Left Forearm INT / Saline Lock ] IV Catheter Type [Left Hand] INT / Saline Lock Active Medications - Current Medications Current Medications: Generic Name Dose Route Start Last Admin Trade Name Freq PRN Reason Stop Dose Admin Acetaminophen 650 mg 09/10/20 06:20 Tylenol [place] Q4H PRN Fever >101 Labetalol HCl 200 mg 09/11/20 14:00 09/13/20 10:02 Labetalol PO 200 mg BID DHARMESH Administration Lisinopril 30 mg 09/11/20 16:00 09/13/20 10:04 Zestril PO 30 mg QDAY DHARMESH Administration Ondansetron HCl 4 mg 09/10/20 06:18 09/11/20 21:31 Zofran IV 4 mg Q8H PRN Administration Nausea And Vomiting Oxycodone/Acetaminophen 1 tab 09/14/20 05:27 Percocet 5/325 PO Q6H PRN Pain, Moderate (4-6) Pantoprazole Sodium 40 mg 09/12/20 14:00 09/13/20 08:43 Protonix PO 40 mg QDAC DHARMESH Administration Nutrition/Malnutrition Assess - Dietary Evaluation Nutrition/Malnutrition Findings: Nutrition Notes Start: 09/10/20 15:51 Freq: Status: Active Protocol: Document 09/13/20 13:45 GUERA (Rec: 09/13/20 13:52 BK [id number]) Co-Sign 09/13/20 13:45 LM Nutrition Notes Initial or Follow up Reassessment Current Diagnosis Hypertension Other Pertinent Diagnosis SBO Current Diet Regular Labs/Tests K 3.0 Cr 0.5 Pertinent Medications Reviewed Height 5 ft 1 in Weight 40.82 kg [place] Body Weight (kg) 47.72 BMI 16.9 Weight Status Underweight Subjective/Other Information F/U for diet advancement and NFPE. Pt unable to eat regular diet d/t not having dentures in. Pt states she wants to eat . Percent of energy/protein needs met: 0%/0% Burn Absent Trauma Absent GI Symptoms None Minimum of two criteria Yes Interpretation of Weight Loss (severe) >7.5% in 3 months Body Fat Depletion Moderate depletion (severe) Muscle Mass Moderate Depletion (severe) #3 Nutrition Diagnosis Malnutrition Etiology SBO As Evidenced by Signs and Symptoms 33% wt loss in 3 months, fat and muscle mass depletion #2 Nutrition Diagnosis Inadequate oral intake As Evidenced by Signs and Symptoms pt consuming 0% meals Diagnosis Progress(for reassessment Continues documentation) #1 Nutrition Diagnosis Underweight Diagnosis Progress(for reassessment Continues documentation) Is patient on ventilator? No Is Patient Ambulatory and/or Out of Bed Yes REE-([facility]-ambulatory/OOB) [ 1229.254 NUTR.MSJOOB] Kcal/Kg value to use for calculation 40 Approximate Energy Requirements Using 1633 kcal/Kg Calculation Used for Recommendations Kcal/kg Additional Notes 50-60 g Pro/day(1.25-1.5 g/kg) Fluids: 1 ml/kcal Nutrition Intervention Change Diet Order: Mechanical soft Nutrition Support: Ensure Enlive BID Kcal 700 Protein (gm) 40 Goal #1 Tolerate mechanical soft diet Goal #2 Diet advancement when medically able Anticipated Discharge Needs: Unable to determine at this time Follow-Up By: 09/17/20 Additional Comments F/U for PO/ONS tolerance
== END 2020-09-13 19:30 | disposition home or self-care (01) | DRG 445 ==
LOC: ED 22:03 → 3B-SURG 09-10 04:28 → OBSVTOIN 09-12 08:21
PROVIDERS: ADMIT Internal Medicine; ATTEND Internal Medicine
PROC: 0FC98ZZ Extirpation of Matter from Common Bile Duct, Via Natural or Artificial Opening Endoscopic (ICD-10-PCS; principal; 2020-09-12)
PROC: BF131ZZ Fluoroscopy of Gallbladder and Bile Ducts using Low Osmolar Contrast (ICD-10-PCS; 2020-09-12)
PROC: 0F798DZ Dilation of Common Bile Duct with Intraluminal Device, Via Natural or Artificial Opening Endoscopic (ICD-10-PCS; 2020-09-12)
DX: K80.71 Calculus of gallbladder and bile duct without cholecystitis with obstruction (principal); E44.0 Moderate protein-calorie malnutrition; Z68.1 Body mass index [BMI] 19.9 or less, adult; E87.6 Hypokalemia; G47.30 Sleep apnea, unspecified; I10 Essential (primary) hypertension; F17.210 Nicotine dependence, cigarettes, uncomplicated; Z79.899 Other long term (current) drug therapy; Z87.01 Personal history of pneumonia (recurrent)
CPT/HCPCS: 36415; 74328; 76705; 80053; 80076; 81001; 83690; 84132; 85025; 96372; G0378; C1726; C2625; J1170; J2250; J2270; J2405; J2704; J3010; J3480; J7030; Q9967

== ENCOUNTER 2021-02-24 12:47 | Emergency (ER) | payer MEDICAID ==
[2021-02-24 13:08] VITALS: BP 179/84
[2021-02-24] MEDS ORDERED: SODIUM CHLORIDE 0.9% 1000 ML 1,000 ML IV ONE (13:25)
--- NOTE | 2021-02-24 13:36 | Event Note ---
ED Screening Note Date of service: 02/24/21 Time: 13:34 ED Screening Note: Patient is a very poor historian. He was brought to the ER today by EMS. She complains of migraine headache since last night. She states she also had a seizure this morning. She has a history of migraines and seizure disorder and a history of hypertension She also had intracranial surgery about 5 years ago to remove a brain tumor and she has been having issues with migraines and seizures since. She is currently out of her Keppra, Topamax, carbamazepine She appears to be very anxious, and tearful during triage. She is alert, but disoriented to place and time This initial assessment/diagnostic orders/clinical plan/treatment(s) is/are subject to change based on patients health status, clinical progression and re- assessment by fellow clinical providers in the ED. Further treatment and workup at subsequent clinical providers discretion. Patient/guardian urged not to elope from the ED as their condition may be serious if not clinically assessed and managed. Initial orders include: Altered mental status order set
[2021-02-24 14:26] LABS: Hematocrit 41.8 % (30.3-42.9); Hemoglobin 13.6 gm/dl (10.1-14.3); Mean Corpuscular HGB Conc 33 % (30-34); Mean Corpuscular Volume 89 fl (79-97); Platelet Count 165 K/mm3 (140-440); Red Blood Count 4.67 M/mm3 (3.65-5.03); Red Cell Distribution Width 13.9 % (13.2-15.2)
[2021-02-24 14:32] LABS: Basophils % (Auto) 0.2 % (0.0-1.8); Lymphocytes # (Auto) 0.9 K/mm3 (1.2-5.4); Lymphocytes % (Auto) 15.6 % (13.4-35.0); Monocytes # (Auto) 0.2 K/mm3 (0.0-0.8); Monocytes % (Auto) 2.8 % (0.0-7.3)
[2021-02-24 15:01] LABS: Alanine Aminotransferase 12 units/L (7-56); Albumin 4.7 g/dL (3.9-5); Blood Urea Nitrogen 9 mg/dL (7-17); Calcium 9.5 mg/dL (8.4-10.2); Hemolysis Index 3
[2021-02-24 15:15] LABS: BUN/Creatinine Ratio 15
[2021-02-24] MEDS ORDERED: METOCLOPRAMIDE 10 MG/2 ML INJ IV ONE (19:52)
[2021-02-24] MEDS ORDERED: diphenhydrAMINE 50 MG/ML VIAL IV ONE (19:52)
[2021-02-24] MEDS ORDERED: POTASSIUM CHLORIDE ER 20 MEQ TAB PO ONE (19:52)
[2021-02-24] MEDS ORDERED: levETIRAcetam 1000 MG/NS 0.75% 1,000 MG/100 ML BAG IV ONE (19:52)
[2021-02-24] MEDS ORDERED: dexAMETHasone 20 MG/5 ML VIAL IV ONE (19:52)
--- NOTE | 2021-02-24 19:58 | Emergency Department Report ---
<REKHABHARGAVIKATHIE ESPARZA - Last Filed: 02/24/21 21:03> ED General Adult HPI - General Chief complaint: Headache Stated complaint: MIGRAINE Time Seen by Provider: 02/24/21 19:30 Source: patient Mode of arrival: Wheelchair Limitations: No Limitations - History of Present Illness Initial comments: 56-year-old female patient with history of hypertension and cerebral tumor status post left craniotomy with subsequent chronic migraines and seizures presents to the emergency department with complaints of nontraumatic headache starting yesterday and seizure this morning. Patient states that headache that she is currently experiencing is consistent with prior migraine headaches. She took Excedrin at home with limited relief. Today, she was ambulating to the bathroom when she claims she experienced "half of" a seizure; however, the episode was not witnessed. She was brought here by EMS. States she does not have a local primary care provider although she has been living in [place] for the last 3 years. She is supposed to be taking Keppra, Tegretol, and Topamax. She states she has been out of these medications for "awhile." Denies fever, chills, neck stiffness, vision changes, chest pain, shortness of breath, nausea, vomiting, diarrhea, syncope, paresthesias, numbness. Denies all other complaints at this time. Severity scale (0 -10): 10 - Related Data Previous Rx's Medication Instructions Recorded Last Taken Type Sulfacetamide Sod 10% (Nf) [Bleph 2 drops OP Q3H #1 bottle 03/30/19 Unknown Rx 10 (Nf)] Lisinopril [Zestril TAB] 30 mg PO QDAY #30 tab 09/06/20 Unknown Rx labetaloL [Labetalol 200mg TAB] 200 mg PO BID #60 tablet 09/06/20 Unknown Rx oxyCODONE /ACETAMINOPHEN [Percocet 1 tab PO Q4HR #14 tab 09/11/20 Unknown Rx 5/325 mg] Pantoprazole [Protonix TAB] 40 mg PO QDAC #30 tablet 09/13/20 Unknown Rx levETIRAcetam [Keppra TAB] 500 mg PO BID #60 tablet 02/24/21 Unknown Rx Allergies Allergy/AdvReac Type Severity Reaction Status Date / Time sumatriptan [From Imitrex] AdvReac Anaphylaxis Verified 02/24/21 13:06 ED Review of Systems Other: GENERAL: Negative for fever, chills, weight change, anorexia, fatigue. ENT: Negative for ear pain, difficulty hearing, sore throat, nasal congestion, epistaxis. CARDIOVASCULAR: Negative for chest pain, palpitations, lower extremity swelling. PULMONARY: Negative for cough, dyspnea, wheezing, orthopnea, cyanosis. GASTROINTESTINAL: Negative for abdominal pain, nausea, vomiting, diarrhea, constipation. MUSCULOSKELETAL: Negative for joint pain, joint swelling, myalgias, back pain, neck pain. NEUROLOGICAL: Positive for headache and seizure. INTEGUMENTARY: Negative for erythema, rash, diaphoresis, laceration, ecchymosis. HEMATOLOGICAL: Negative for hemoptysis, hematemesis, hematochezia, hematuria. PSYCHIATRIC: Negative for hallucinations, suicidal ideation, homicidal ideation, anxiety, depression. ED Past Medical Hx - Past Medical History Hx Hypertension: Yes Hx Heart Attack/AMI: No Hx Congestive Heart Failure: No Hx Diabetes: No Hx Liver Disease: No Hx Renal Disease: No Hx Sickle Cell Disease: No Hx Seizures: Yes Hx Asthma: No Hx COPD: No Additional medical history: Encephalopathy R/T seizures. - Surgical History Hx Pacemaker: No Hx Internal Defibrillator: No Additional Surgical History: Brain Tumor surgery, Abdominal Surgery - Social History Smoking Status: Never Smoker - Medications Home Medications: Home Medications Medication Instructions Recorded Confirmed Last Taken Type Sulfacetamide Sod 10% (Nf) [Bleph 2 drops OP Q3H #1 bottle 03/30/19 09/11/20 Unknown Rx 10 (Nf)] Lisinopril [Zestril TAB] 30 mg PO QDAY #30 tab 09/06/20 09/11/20 Unknown Rx labetaloL [Labetalol 200mg TAB] 200 mg PO BID #60 tablet 09/06/20 09/11/20 Unknown Rx oxyCODONE /ACETAMINOPHEN [Percocet 1 tab PO Q4HR #14 tab 09/11/20 Unknown Rx 5/325 mg] Pantoprazole [Protonix TAB] 40 mg PO QDAC #30 tablet 09/13/20 Unknown Rx levETIRAcetam [Keppra TAB] 500 mg PO BID #60 tablet 02/24/21 Unknown Rx ED Physical Exam - General Limitations: No Limitations - Other Other exam information: General: Awake and alert. No acute distress. HEENT: Atraumatic. Post-surgical changes from left craniotomy noted. EOMI. Pupils are equal and round. No nystagmus. Uncooperative with assessment of pupil reaction due to severe photophobia. Normal sclera and conjunctiva. Unilateral proptosis on the right. No temporal artery tenderness. ENT: Oral mucosa is moist. Normal pharyngeal exam. Neck: Supple. No lymphadenopathy. Pulmonary: No respiratory distress. Clear to auscultation bilaterally. Cardiac: Regular rate and rhythm. Pulses are palpable and equal bilaterally. No lower extremity cyanosis or edema. Skin: Warm and dry. No rashes. Abdomen: Soft, non-tender, non-protuberant. No guarding, rigidity, or rebound. Bowel sounds are normal. No organomegaly or masses noted. Back: Normal alignment. No CVA tenderness. Extremities: Symmetrical. Full range of motion intact. Neurological: Alert and oriented, appropriately interactive, no focal deficits. Strength and sensation intact throughout. GCS 15. Cranial nerves II-XII grossly intact. Psych: Cooperative. Appropriate mood and affect. Speech is evenly metered. Thoughts are logically construed. ED Medical Decision Making - Lab Data Result diagrams: 02/24/21 14:06 02/24/21 14:06 - Radiology Data [facility] [address] [place] [address] Cat Scan Report Signed Patient: PRINCESS MARCIA FERRIS MR#: [id number] : 1965 Acct:[id number] Age/Sex: 56 / F ADM Date: 02/24/21 Loc: ED Attending Dr: Ordering Physician: RICHY COMER Date of Service: 02/24/21 Procedure(s): CT head/brain wo con Accession Number(s): [id number] cc: RICHY COMER CT head/brain wo con INDICATION: unilateral proptosis (R); hx brn tumor; ESQUEDA/seizure. TECHNIQUE: Routine CT head. All CT scans at this location are performed using CT dose reduction for ALARA by means of automated exposure control. COMPARISON: Prior imaging would not load. Prior report was reviewed. FINDINGS: Intracranial: Postoperative changes from left craniotomy with underlying encephalomalacia. Periventricular white matter hypoattenuation is nonspecific but could be related to prior radiation. No evidence for acute territorial infarction.. No intracranial hemorrhage. No extra axial collection. No hydrocephalus. No herniation. Sinuses: Paranasal sinuses and mastoid air cells are essentially clear. Orbits: Globes are intact. Calvarium: No acute fracture. IMPRESSION: 1. No acute intracranial abnormality. Signer Name: Canelo Torrez MD Signed: 02/24/2021 8:45 PM Workstation Name: [id number] Transcribed By: CS Dictated By: Canelo Torrez MD Electronically Authenticated By: aCnelo Torrez MD Signed Date/Time: 02/24/212044 DD/ 40 TD/TT: Print Cancel - Medical Decision Making Differential diagnosis including but not limited to: subarachnoid hemorrhage, cerebral tumor, migraine headache, tension headache, cluster headache, normal pressure hydrocephalus, pseudotumor cerebri, glaucoma, temporal arteritis Patient presents to emergency department with complaints of nontraumatic headache starting yesterday with associated photophobia and reported seizure act ivity this morning. She is not an appropriate candidate for clinical rule out using the [place] subarachnoid hemorrhage rule due to her age and prior neurosurgical history. On physical examination, patient is found to have a right unilateral proptosis, which upon further interrogation she states is new since last week. CT head shows postsurgical changes without acute process. 21:07: Diagnostic evaluation in progress. Care of patient transferred to Ragini Villarreal PA-C at shift change for further evaluation and final disposition. ED Disposition Clinical Impression: Seizure disorder, Headache Disposition: DC-01 TO HOME OR SELFCARE Condition: Stable Additional Instructions: Please take medication as prescribed. Is very important for you to follow-up within the neurologist. Tylenol ibuprofen or Excedrin for headaches. Prescriptions: levETIRAcetam [Keppra TAB] 500 mg PO BID #60 tablet Referrals: PRIMARY CAREMD [Primary Care Provider] - 3-5 Days JOHN SARGENT II, MD [Staff Physician] - 3-5 Days <GUSTAVO VILLARREAL - Last Filed: 02/25/21 00:52> ED Review of Systems ROS: Stated complaint: MIGRAINE Other details as noted in HPI ED Course Vital Signs 02/24/21 13:07 Temperature 98.1 F Pulse Rate 82 Respiratory 20 Rate Blood Pressure 179/84 [Right] O2 Sat by Pulse 97 Oximetry ED Medical Decision Making - Lab Data Result diagrams: 02/24/21 14:06 02/24/21 14:06 - Medical Decision Making Patient has been reevaluated by this provider states that her headache has improved and that she is ready to be discharged home. Patient is sleeping comfortably in the chair with no seizure activity no nausea no vomiting no distress appreciated. Critical care attestation.: If time is entered above; I have spent that time in minutes in the direct care o f this critically ill patient, excluding procedure time. ED Disposition Is pt being admited?: No Does the pt Need Aspirin: No
--- NOTE | 2021-02-24 20:49 | Cat Scan Report ---
CT head/brain wo con INDICATION: unilateral proptosis (R); hx brn tumor; ESQUEDA/seizure. TECHNIQUE: Routine CT head. All CT scans at this location are performed using CT dose reduction for A DIETER by means of automated exposure control. COMPARISON: Prior imaging would not load. Prior report was reviewed. FINDINGS: Intracranial: Postoperative changes from left craniotomy with underlying encephalomalacia. Periventri cular white matter hypoattenuation is nonspecific but could be related to prior radiation. No eviden ce for acute territorial infarction.. No intracranial hemorrhage. No extra axial collection. No hydro cephalus. No herniation. Sinuses: Paranasal sinuses and mastoid air cells are essentially clear. Orbits: Globes are intact. Calvarium: No acute fracture. IMPRESSION: 1. No acute intracranial abnormality. Signer Name: Canelo Torrez MD Signed: 02/24/2021 8:45 PM Workstation Name: [id number]
--- NOTE | 2021-02-25 10:36 | Electrocardiograph Report ---
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
== END 2021-02-24 23:44 | disposition home or self-care (01) ==
LOC: ED 12:47
DX: G40.909 Epilepsy, unspecified, not intractable, without status epilepticus (principal); R51.9 Headache, unspecified; I10 Essential (primary) hypertension; Z98.890 Other specified postprocedural states; Z79.899 Other long term (current) drug therapy; Z88.8 Allergy status to other drugs, medicaments and biological substances
CPT/HCPCS: 36415; 70450; 80053; 83735; 84484; 85025; 93005; 96365; 96375; 99284; J1100; J1200; J1953; J2765; 80320; G0480